=== PATIENT | female | born 1960 | race Asian ===

== ENCOUNTER → 2025-05-09 | Outpatient (CLI) | payer MEDICARE, MEDICAID, SELFPAY ==
--- NOTE | 2025-05-09 13:00 | XR_ITS ---
Examination: PA lateral chest 2 views TECHNIQUE: Upright PA lateral chest 2 views Date and time: May 09, 2025, 1357 hours INDICATIONS: Chest pain beginning one year ago. FINDINGS: Normal heart size. Lungs are clear. The osseous structures are intact IMPRESSION: No active disease
== END | disposition home or self-care (01) ==
PROVIDERS: PCP Nurse Practitioner Family; Referring Provider Internal Medicine; Visit Provider Internal Medicine
DX: R07.89 Other chest pain (principal)
CPT/HCPCS: 71046

== ENCOUNTER → 2025-05-12 | Outpatient (CLI) | payer MEDICARE, MEDICAID, SELFPAY ==
[2025-05-12 11:56] LABS: Basophils # (Auto) 0.0 Thou/mm3 (0.0-0.2); Basophils % (Auto) 1 % (0-2.5); Eosinophils # (Auto) 0.4 Thou/mm3 (0.0-0.5); Eosinophils % (Auto) 7 % (0-10); Hematocrit 37.8 % (36.0-46.0); Hemoglobin 11.8 g/dL (12.0-16.0); Immature Granulocytes Auto 0.02 Thou/mm3 (0.00-0.00); Lymphocytes # (Auto) 2.4 Thou/mm3 (1.0-4.8); Lymphocytes % (Auto) 43 % (10-50); Mean Corpuscular HGB Conc 31.2 g/dl (31.0-37.0); Mean Corpuscular Hemoglobin 29.9 pg (25.0-35.0); Mean Corpuscular Volume 96 fL (80-100); Monocytes # (Auto) 0.6 Thou/mm3 (0.0-0.8); Monocytes % (Auto) 11 % (0-12); Neutrophils # (Auto) 2.2 Thou/mm3 (1.8-7.7); Neutrophils % (Auto) 39 % (37-80); Nucleated Red Blood Cell # 0.00 Thou/mm3 (0.00-0.00); Nucleated Red Blood Cell % 0 /100 WBC (0); Platelet Count 234 Thou/mm3 (140-440); RDW Standard Deviation 46.2 fL (36.4-46.3); Red Blood Count 3.95 Miln/mm3 (4.00-5.20); White Blood Count 5.7 Thou/mm3 (3.6-11.0)
[2025-05-12 12:06] LABS: INR 1.0 (0.9-1.3); Partial Thromboplastin Time 24.5 Seconds (22.0-36.0); Prothrombin Time 10.5 Seconds (9.0-12.2)
[2025-05-12 12:23] LABS: Anion Gap 11 (7-16); BUN/Creatinine Ratio 15 Ratio (12-20); Blood Urea Nitrogen 15 mg/dL (9-23); Calcium 9.6 mg/dL (8.3-10.6); Carbon Dioxide 28.0 mMol/L (20.0-31.0); Chloride 108 mMol/L (98-107); Creatinine (Component) 1.0 mg/dL (0.6-1.3); Glucose 88 mg/dL (74-106); Osmolality,Calculated 292 (275-295); Potassium 4.9 mMol/L (3.4-5.1); Sodium 147 mMol/L (136-145); eGFR > 60 See Note
== END | disposition home or self-care (01) ==
LOC: COPL 10:49
PROVIDERS: PCP Nurse Practitioner Family; Referring Provider Internal Medicine; Visit Provider Internal Medicine
DX: I25.10 Atherosclerotic heart disease of native coronary artery without angina pectoris (principal); I48.91 Unspecified atrial fibrillation
CPT/HCPCS: 36415; 80048; 85025; 85610; 85730

== ENCOUNTER 2025-07-16 15:35 | Inpatient (IN) | payer MEDICARE, MEDICAID, SELFPAY ==
[2025-07-16] VITALS (11 sets, daily range): BP systolic 111–140; BP diastolic 68–85; PULSE 57–127; RESP 15–24; TEMP 37–39.7; O2SAT 92–97; BMI 21.9
--- NOTE | 2025-07-16 15:50 | EKG_ITS ---
[facility] Test Date: 2025-07-16 Pat Name: TATYANA CARPIO Department: Room: - Gender: Female Secondary English Teacher: : 1960 Requested By: Meagan Novak Order Number: [id number] Reading MD: Meagan Novak Measurements Intervals [place] Rate: 103 P: 64 AR: 120 QRS: 11 QRSD: 98 T: 42 QT: 310 QTc: 407 Interpretive Statements SINUS TACHYCARDIA WITH OCCASIONAL VENTRICULAR PREMATURE COMPLEXES INCOMPLETE RIGHT BUNDLE BRANCH BLOCK [90+ ms QRS DURATION, TERMINAL R IN V1/V2, 40+ ms S IN I/aVL/V4/V5/V6] ABNORMAL RHYTHM ECG Compared to ECG 08/21/2022 15:21:46 Ventricular premature complex(es) now present Sinus rhythm no longer present /store/S0/[id number]/ecg/[id number].pdf
--- NOTE | 2025-07-16 15:51 | XR_ITS ---
EXAMINATION: AP chest single view TECHNIQUE: AP portable upright chest single view Date and time: July 16, 2025, 1611 hours, comparison 05/09/2025 INDICATIONS: Sepsis alert today with shortness of breath. FINDINGS: Minor subsegmental atelectasis left base No lobar pneumonia. Normal heart size. Moderate osteopenia IMPRESSION: No pneumonia identified
--- NOTE | 2025-07-16 15:53 | PD.EDWEAK ---
ED Weakness RME/HPI General Chief complaint: Syncope / Near Syncope Stated complaint: NAUSEA/VOMITING WEAKNESS Time Seen by Provider: 07/16/25 15:49 Arrival date/time: 07/16/25 15:35 RME / HPI RME / HPI Narrative: 65 year old female with history of hypertension, diabetes, hyperlipidemia presents to the ED BIBA from home for evaluation of malaise and right-sided weakness beginning 3 days ago. Patient additionally complains of headache, chest pain, nausea, and vomiting. Denies fevers, chills, sore throat, shortness of breath, cough, diarrhea, or urinary symptoms. No blood in urine or stool. Patient mentioned she has had recent sick contacts, granddaughter sick with URI symptoms. Related Data Home Medications ?Medication ?Instructions ?Recorded ?Confirmed AMLODIPINE/ATORVASTATIN 1 ea PO DAILY ##0 12/21/12 (AMLODIPINE-ATORVAST 5-20 MG) lovastatin 20 mg tablet 20 mg PO DAILY ##0 12/21/12 naproxen 500 mg tablet 500 mg PO BID ##0 12/21/12 sumatriptan succinate 25 mg tablet 25 mg PO [id number] ##0 12/21/12 (Imitrex) Amitriptyline Hcl 25 mg PO QDAY ##30 07/08/16 Cyclobenzaprine Hcl 5 mg PO TID ##90 07/08/16 Hydrocodone/Acetaminophen * (NORCO 1 tab PO Q4H PRN PAIN #0 tabs 07/08/16 5/325 *) Metformin Hcl 500 mg PO BID ##60 07/08/16 gabapentin 300 mg capsule 300 mg PO QDAY ##30 07/08/16 gemfibrozil 600 mg tablet 600 mg PO BID ##60 07/08/16 triamcinolone acetonide 0.1 % 1 appln TP BID ##30 07/08/16 topical cream Previous Rx's ?Medication ?Instructions ?Recorded ibuprofen 800 mg tablet 800 mg PO TID PRN pain #60 tabs 11/26/20 albuterol sulfate 90 mcg/actuation 2 inh inhalation Q4H PRN shortness 08/21/22 aerosol inhaler of breath or wheezing #8.5 grams azithromycin 250 mg tablet See Rx Instructions PO .COMPLEX #6 08/21/22 (Zithromax Z-Jeff) tabs promethazine-DM 6.25 mg-15 mg/5 mL 5 ml PO Q4H PRN cough #118 mL 08/21/22 oral syrup Allergies Allergy/AdvReac Type Severity Reaction Status Date / Time No Known Allergies Allergy Verified 05/19/21 11:42 Review of Systems Review of Systems Systems Reviewed: All systems reviewed, normal except as documented Past Medical History Past Medical History CARDIAC: Positive Cardiac Disorders (LEAKY HEART VALVE,), Hypercholesterolemia and Hypertension MUSCULOSKELETAL: Positive Arthritis ENDOCRINE: Positive Diabetes Mellitus Type 2 Surgical History SURGICAL: Positive Vascular Surgery (TO LEG UNDURE LEFT OR RIGHT) and of Shoulder Sx (RIGHT SHOULDER) Social History SMOKING STATUS: Never smoker ED Exam Narrative Physical exam: Constitutional: Awake, alert, nontoxic, no acute distress HEENT: Normocephalic, atraumatic, extraocular movements intact. Neck: Supple CV: Regular rate and rhythm, no murmurs/rubs/gallops Lungs: Clear to auscultation BL, no respiratory distress. Abd: Soft, NT, ND, no HSM noted to palpation Extremities: No deformities, no edema noted, the right wrist acutely hot to touch with mild swelling, the right elbow also hot to touch though not as hot as the wrist, tenderness with movement of the right wrist and right elbow, unable to fully extend the right elbow. Pain to the right ankle, none to the knees bilaterally, no swelling. Neuro: AAOx3, CN 2-12 GIBL, no acute neuro deficit noted. Skin: Warm, dry, intact Course Course Course Narrative: 1755h: Patient with symptoms of fever ongoing the last few days as well as right-sided weakness last few days with right-sided headache recently. Her CRP is elevated as is her procalcitonin though white blood cell count is normal. Blood cultures have been ordered and sent. Empiric IV antibiotics ordered. Having pain to her right wrist and right elbow. Swelling to right wrist concerning for arthritic process. Discussed with hospitalist team for admission for further evaluation and management. I spoke with hospitalist team C for admission. Accepted. Quality Measures Current suspected stage: sepsis Possible source: unknown Blood cultures ordered: completed in ED Antibiotic ordered: Yes Pertinent labs: 07/16/25 15:45 Lactic Acid 1.5 mMol/L (0.4-2.0) Procalcitonin 0.80 H ng/ml (0.0-0.49) sepsis Orders Category Date Time Status Bedside COVID-19 Antigen Test NOW Care 07/16/25 16:03 Active Medical Insurance [employer] STAT Care 07/16/25 15:50 Active Continuous Pulse Oximetry STAT Care 07/16/25 15:50 Completed EKG (ED ONLY) *Do not use* NOW Care 07/16/25 15:50 Completed In and Out Catheter X1 Care 07/16/25 16:05 Completed In and Out Catheter X1PRN Care 07/16/25 15:50 Completed Insert IV NOW Care 07/16/25 15:50 Active NPO STAT Care 07/16/25 15:50 Active Strict Intake and Output Routine Care 07/16/25 15:[address] head/brain wo con Stat Exams 07/16/25 16:33 Completed EKG (ED Only) Stat Exams 07/16/25 15:50 Draft XR chest 1V SEPSIS PROTOCOL Stat Exams 07/16/25 15:51 Completed XR wrist RT 2V Stat Exams 07/16/25 17:55 Ordered B-Type Natriuretic Peptide Stat Lab 07/16/25 15:45 Completed Blood Culture (Lab) Stat Lab 07/16/25 15:40 Received C-Reactive Protein Stat Lab 07/16/25 15:45 Completed CBC Stat Lab 07/16/25 15:45 Completed Comprehensive Metabolic Panel Stat Lab 07/16/25 15:45 Completed FLU A&B [Influenza A & B Rapid Panel] Stat Lab 07/16/25 16:00 Completed Lactate (Lactic Acid) Stat Lab 07/16/25 15:45 Completed Lipase Stat Lab 07/16/25 15:45 Completed Magnesium Stat Lab 07/16/25 15:45 Completed Phosphorous Stat Lab 07/16/25 15:45 Completed Procalcitonin Stat Lab 07/16/25 15:45 Completed Prothrombin Time with INR Stat Lab 07/16/25 15:45 Completed Troponin I Stat Lab 07/16/25 15:45 Completed Urinalysis, C/S if Indicated Stat Lab 07/16/25 16:00 Completed Ringers Lactated 1000 ml [Lactated Ringers] 1,000 ml Med 07/16/25 17:49 Active IV 999 mls/hr Ringers Lactated 1000 ml [Lactated Ringers] 1,000 ml Med 07/16/25 17:49 Active IV 999 mls/hr cefTRIAXone [Rocephin] 2 gm Med 07/16/25 17:57 Active SODIUM CHLORIDE 0.9% (Popper) [Ns 0.9% (P)] 50 ml IV X1 Vital Signs Vital signs: Vital Signs Temperature 103.0 F H 07/16/25 15:45 Pulse Rate 120 H 07/16/25 15:45 Respiratory Rate 24 H 07/16/25 15:45 Blood Pressure 131/76 H 07/16/25 15:45 Pulse Oximetry (%) 95 07/16/25 15:45 Oxygen Delivery Method Room Air 07/16/25 15:45 Pulse ox is 95% on room air which is adequate. Weakness MDM Narrative MDM Narrative:: Carola Younger am scribing for and in the presence of Dr. Hurley. Patient data [place] [facility] [place] Clinical information provided by:: patient Social determinants that could affect healthcare access:: none Patient has the following chronic illnesses:: Right shoulder surgery How is presenting disease/condition affected by chronic disease/condition?: uneffected by Evaluation data The following diagnostics were reviewed and interpreted by me:: lab results, radiology exam(s) and EKG tracing(s) (EKG @ 16:05h, interpreted by me, sinus tachycardia, rate 103, incomplete right bundle branch block, no STEMI. ) Lab and/or radiology exams considered but not ordered:: None Interpretation Summary: Ordering Physician: Meagan Hurley MD Date of Service: 07/16/25 Procedure(s): XR chest 1V SEPSIS PROTOCOL Accession Number(s): [id number] cc: Nolan Ornelas MD; Meagan Hurley MD; Danyelle Heredia NP~ EXAMINATION: AP chest single view TECHNIQUE: AP portable upright chest single view Date and time: July 16, 2025, 1611 hours, comparison 05/09/2025 INDICATIONS: Sepsis alert today with shortness of breath. FINDINGS: Minor subsegmental atelectasis left base No lobar pneumonia. Normal heart size. Moderate osteopenia IMPRESSION: No pneumonia identified Dictated By: Nolan Ornelas MD Signed By: <Electronically signed by Nolan Ornelas MD in OV> 07/16/25 1647 Ordering Physician: Meagan Hurley MD Date of Service: 07/16/25 Procedure(s): CT head/brain wo con Accession Number(s): [id number] cc: Nolan Ornelas MD; Meagan Hurley MD; Danyelle Heredia NP~ Examination: CT brain head without contrast. 2-D sagittal coronal reconstructions Date and time of exam: July 16, 2025, 1721 hours, comparison December 11, 2020 INDICATIONS: Onset right-sided body weakness beginning 3 days ago CTDI: vol (mGy): 46.7 DLP: (mGycm): 834 Technique: Multiple CT axial sections of the brain have been obtained, 5 mm slice thickness. Contrast has not been administered. 2-D sagittal, coronal reconstructions have been obtained Low dose protocols were performed. One or more of the following dose reduction techniques were used; automated exposure control, adjustment of the mA and/or KV according to patient size, use of iterative reconstruction technique. Findings: No significant ventricular enlargement. Intra-axial or extra-axial hemorrhage density is not seen. No mass effect or midline shift Basal cisterns are not remarkable. Fourth ventricle is midline. Cranial vault intact. Impression: Negative for acute hemorrhage, mass effect or midline shift As clinically warranted, brain MRI follow-up would best assess for acute ischemic change Dictated By: Nolan Ornelas MD Signed By: <Electronically signed by Nolan Ornelas MD in OV> 07/16/25 9822 Medications / Prescriptions Medications or Prescriptions considered but not ordered:: None Medication administrations:: Medication Administration History Lactated Ringer's (Lactated Ringers) 1,000 mls @ 999 mls/hr IV .Q1H1M ONE Stop: 07/16/25 18:49 Lactated Ringer's (Lactated Ringers) 1,000 mls @ 999 mls/hr IV .Q1H1M ONE Stop: 07/16/25 18:49 Ceftriaxone Sodium 2 gm/ (Sodium Chloride) 50 mls @ 100 mls/hr IV X1 ONE Stop: 07/16/25 18:26 See above Consultations Consultation(s) initiated? (list below): Yes Consultation #1 (Physician, Specialty, Details): See above Diagnosis Weakness Differential Diagnosis: acute myocardial infarction, anemia, hypothyroidism, sepsis and dehydration Most likely diagnosis given after review of the tests above:: Acute febrile illness Acute right sided weakness right wist arthritis Admission Indicated Admission indicated?: indicated Admission Request Was there a request for admission?: Yes Admission Attestation Admission request attestation: Discussed case with [] from Hospitalist service regarding admission. Discussed patients ED course, exam findings, labs, and radiology results. The Hospitalist [agrees,declines] to accept the patient for admission. Disposition Plan Disposition Plan: Admit Discharge Plan Plan Patient Disposition: Admit Acute Care w/in Hospital Patient condition on transfer: Stable Prescriptions/Referrals Prescriptions/Med Rec: No Action AMLODIPINE/ATORVASTATIN (AMLODIPINE-ATORVAST 5-20 MG) 1 EACH tablet 1 ea PO DAILY Qty: 0 sumatriptan succinate [Imitrex] 25 MG tablet 25 mg PO [id number] Qty: 0 lovastatin 20 MG tablet 20 mg PO DAILY Qty: 0 naproxen 500 MG tablet 500 mg PO BID Qty: 0 gemfibrozil 600 MG tablet 600 mg PO BID Qty: 60 Amitriptyline Hcl 25 MG tablet 25 mg PO QDAY Qty: 30 triamcinolone acetonide 15 GM cream 1 appln TP BID Qty: 30 gabapentin 300 MG capsule 300 mg PO QDAY Qty: 30 Cyclobenzaprine Hcl 5 MG tablet 5 mg PO TID Qty: 90 Hydrocodone/Acetaminophen * (NORCO 5/325 *) 1 TAB tablet 1 tab PO Q4H PRN (Reason: PAIN) Qty: 0 Metformin Hcl 500 MG tablet 500 mg PO BID Qty: 60 ibuprofen 800 mg tablet 800 mg PO TID PRN (Reason: pain) Qty: 60 0RF albuterol sulfate 90 mcg/actuation HFA aerosol inhaler 2 inh inhalation Q4H PRN (Reason: shortness of breath or wheezing) Qty: 8.5 0RF azithromycin [Zithromax Z-Jeff] 250 mg tablet See Rx Instructions PO .COMPLEX Qty: 6 0RF Rx Instructions: For 250 mg dose pack: take 500 mg today (day 1), then 250 mg for 4 days (days 2-5) promethazine-DM 6.25-15 mg/5 mL syrup 5 ml PO Q4H PRN (Reason: cough) Qty: 118 0RF Referrals: Danyelle Heredia, [employer] [employer] [employer] [Primary Care Provider] - In 1 week Problem List Clinical Impression: Acute febrile illness, Acute right-sided weakness, Arthritis of right wrist Patient/Caregiver Discharge Instructions Print Language: Belgian Stand Alone Forms: Ju[facility] Award Info., Patient Portal Info Letter
[2025-07-16 16:02] LABS: Lactate (Lactic Acid) 1.5 mMol/L (0.4-2.0)
[2025-07-16 16:04] LABS: Basophils # (Auto) 0.0 Thou/mm3 (0.0-0.2); Basophils % (Auto) 0 % (0-2.5); Eosinophils # (Auto) 0.0 Thou/mm3 (0.0-0.5); Eosinophils % (Auto) 0 % (0-10); Hematocrit 33.5 % (36.0-46.0); Hemoglobin 11.0 g/dL (12.0-16.0); Immature Granulocytes Auto 0.03 Thou/mm3 (0.00-0.00); Lymphocytes # (Auto) 1.7 Thou/mm3 (1.0-4.8); Lymphocytes % (Auto) 21 % (10-50); Mean Corpuscular HGB Conc 32.8 g/dl (31.0-37.0); Mean Corpuscular Hemoglobin 30.5 pg (25.0-35.0); Mean Corpuscular Volume 93 fL (80-100); Monocytes # (Auto) 1.3 Thou/mm3 (0.0-0.8); Monocytes % (Auto) 15 % (0-12); Neutrophils # (Auto) 5.4 Thou/mm3 (1.8-7.7); Neutrophils % (Auto) 64 % (37-80); Nucleated Red Blood Cell # 0.00 Thou/mm3 (0.00-0.00); Nucleated Red Blood Cell % 0 /100 WBC (0); Platelet Count 193 Thou/mm3 (140-440); RDW Standard Deviation 40.3 fL (36.4-46.3); Red Blood Count 3.61 Miln/mm3 (4.00-5.20); White Blood Count 8.4 Thou/mm3 (3.6-11.0)
[2025-07-16 16:28] LABS: Collection Type, Urine Clean Catch
--- NOTE | 2025-07-16 16:33 | XR_ITS ---
Examination: CT brain head without contrast. 2-D sagittal coronal reconstructions Date and time of exam: July 16, 2025, 1721 hours, comparison December 11, 2020 INDICATIONS: Onset right-sided body weakness beginning 3 days ago CTDI: vol (mGy): 46.7 DLP: (mGycm): 834 Technique: Multiple CT axial sections of the brain have been obtained, 5 mm slice thickness. Contrast has not been administered. 2-D sagittal, coronal reconstructions have been obtained Low dose protocols were performed. One or more of the following dose reduction techniques were used; automated exposure control, adjustment of the mA and/or KV according to patient size, use of iterative reconstruction technique. Findings: No significant ventricular enlargement. Intra-axial or extra-axial hemorrhage density is not seen. No mass effect or midline shift Basal cisterns are not remarkable. Fourth ventricle is midline. Cranial vault intact. Impression: Negative for acute hemorrhage, mass effect or midline shift As clinically warranted, brain MRI follow-up would best assess for acute ischemic change
[2025-07-16 16:45] LABS: Influenza A Ag Negative; Influenza B Ag Negative
[2025-07-16 16:49] LABS: B-Type Natriuretic Peptide < 20 pg/mL (0-100)
[2025-07-16 16:49] LABS: Bilirubin,Urine Negative (Negative); Blood,Urine 2+ (Negative); Clarity,Urine Clear (Clear/Hazy); Color,Urine Yellow (Lt Yel-Yel); Culture Indicated,Urine Not Indicated; Glucose, Urine Negative (Negative); Ketones,Urine Trace (Negative); Leukocyte Esterase,Urine Negative (Negative); Nitrite,Urine Negative (Negative); PH,Urine 6.0 (5.0-7.0); Protein,Urine 1+ (Neg - Trace); RBC,Urine 64 /hpf (0-3); Specific Gravity,Urine 1.025 (1.001-1.035); Squamous Epithelial Cell,Urine < 1 /hpf (0-5); Urobilinogen,Urine Negative mg/dL (0.0-1.0); WBC,Urine 4 /hpf (0-5)
[2025-07-16 17:15] LABS: Alanine Aminotransferase < 7 U/L (10-49); Albumin, Serum 4.4 gm/dL (3.4-4.8); Albumin/Globulin Ratio 1.5 (1.2-2.2); Alkaline Phosphatase 64 U/L (46-116); Anion Gap 8 (7-16); Aspartate Amino Transferase 34 U/L (0-34); BUN/Creatinine Ratio 11 Ratio (12-20); Bilirubin,Total 0.9 mg/dL (0.3-1.2); Blood Urea Nitrogen 13 mg/dL (9-23); Calcium 8.7 mg/dL (8.3-10.6); Calcium (Corrected) 8.7 mg/dL (8.5-10.1); Carbon Dioxide 28.8 mMol/L (20.0-31.0); Chloride 99 mMol/L (98-107); Creatinine (Component) 1.2 mg/dL (0.6-1.3); Globulin 2.9 gm/dL (2.3-3.5); Glucose 148 mg/dL (74-106); INR 1.1 (0.9-1.3); Lipase 38 U/L (12-53); Magnesium 1.9 mg/dL (1.6-2.6); Osmolality,Calculated 275 (275-295); Phosphorous 2.0 mg/dL (2.4-5.1); Potassium 3.3 mMol/L (3.4-5.1); Procalcitonin 0.80 ng/ml (0.0-0.49); Prothrombin Time 11.4 Seconds (9.0-12.2); Sodium 136 mMol/L (136-145); Total Protein 7.3 gm/dL (5.7-8.2); Troponin I < 0.002 ng/mL (0.0-0.045); eGFR 50 See Note
[2025-07-16 17:32] LABS: C-Reactive Protein 22.1 mg/dL (0.0-0.9)
--- NOTE | 2025-07-16 17:55 | XR_ITS ---
EXAMINATION: Right wrist 2 views TECHNIQUE: AP lateral right wrist 2 views INDICATIONS: Pain and swelling today no trauma. FINDINGS: No fracture or dislocation No foreign body No cortical bone destruction IMPRESSION: No fracture or cortical bone destruction
[2025-07-16] MEDS: cefTRIAXone 2 GM in SODIUM CHLORIDE 0.9% (Popper) 50 ML IV (18:14)
[2025-07-16] MEDS: RINGERS LACTATED 1000 ML 1,000 ML 999 ML IV ×2 (18:28)
--- NOTE | 2025-07-16 18:39 | XR_ITS ---
Examination: CT chest with intravenous contrast CT abdomen with intravenous contrast CT pelvis with intravenous contrast 2-D coronal and sagittal reconstructions Time of exam: July 16, 2025, 1926 hours, comparison April 10, 2024 INDICATIONS: Sepsis alert, onset of chest abdominal pain today CTDI: vol (mGy) : 6.62 DLP: (mGycm): 492 Technique: Multiple axial images of the chest, abdomen and pelvis with intravenous contrast, 3.0 mm slice thickness. Images obtained post intravenous injection Isovue 370 60 cc. 2-D sagittal and coronal reconstructions. Low dose protocols were performed. One or more of the following dose reduction techniques were used; automated exposure control, adjustment of the mA and/or KV according to patient size, use of iterative reconstruction technique. Findings: No thoracic aortic aneurysmal dilatation or dissection No pulmonary artery filling defects on this non CTA study Atelectasis versus mild pneumonia at both bases minimal pleural fluid bilaterally Intrahepatic biliary tract dilatation with small low-density lesions which may represent cysts, liver is irregular in contour Distended gallbladder Abnormal enlargement common bile duct 11 mm, no definite common bile duct stones No pancreatic mass or peripancreatic edema no dilated pancreatic duct Spleen is not enlarged No renal or ureteral calculi,. Mild dilatation of the renal collecting systems and proximal ureters, axial image 180 No ureteral calculi Aorta normal size No bowel obstruction Distended urinary bladder Atrophic uterus IMPRESSION: Atelectasis versus mild pneumonia at the lung bases, clinical correlation advised Distended gallbladder, intra and extrahepatic biliary tract dilatation, with common bile duct 11 mm, no definite common bile duct stones, differential would include ascending cholangitis, common bile duct stone and/or malignant stricture Recommend MRCP follow-up Mild dilatation of the renal collecting systems and proximal ureters bilaterally, consider urinary tract infection
--- NOTE | 2025-07-16 18:40 | ESHP_ITS ---
Addendum History & Physical Addendum Date of report being addended: 07/16/25 Narrative: Patient is a 65-year-old female with history of hypertension, hyperlipidemia, and diabetes, who presented with multiple complaints including generalized weakness, fevers, headaches, nausea, vomiting, and abdominal pain. She also reported that the weakness is mainly on her right side. She reported right wrist swelling. In the ED, she was febrile as high as 103.4. She was tachycardic as high as 1 20. Labs showed no leukocytosis. On exam, she does have right upper extremity swelling. She has weakness on the right side of her body. She has abdominal tenderness that is mainly periumbilical. CT head is negative for acute changes Pending CT of the abdomen/pelvis to look for source of sepsis Pending x-ray of the right wrist Will sign off to night team
[2025-07-16] MEDS: KETOROLAC INJ 30 MG/ML VIAL 15 MG IVP (19:05)
[2025-07-16] MEDS: MethylPREDNISolone SOD SUCC 62.5 MG/ML 2ML VIAL 125 MG IVP (19:17)
--- NOTE | 2025-07-16 23:49 | ESHP_ITS ---
<Statement entered by Albania Del Castillo MD - 07/17/25 03:28> Jadyn Madrigal is 65 yr female with PMH of chronic pain on tramadol, gabapentin, cyclobenzaprine coming with chief complaint of right side weakness that started 2 days ago. Patient speaks Indian. Leo was contacted over the phone who assisted with translation and more history. However, she also was unclear of preceding events. Patient had angiogram on May [address] Saunders. They are not aware of the results yet. Patient lives with the [facility]. Stated that after using the restroom, she had syncopal episode with LOC for 1-2 minutes. Patient does not take diabetic medication any longer. CT head was negative for acute hemorrhage or mass effect. UA not showing infection, CXr negative for any active disease. CT a/p showed distended gallbladder, intra and extrahepatic biliary tract dilatation, with common bile duct 11 mm, no definite common bile duct stones. On physical exam, strength in LE is 3/5, no pain, no abdominal tenderness. Vitals reflecting tachycardia 120, tachypnea 24, fever 103. WBCs 8.4, potassium 3.3, phosphorus 2.0, creatinine 1.2, elevated CRP 22, Pro-Alvin 0.8. Echo is pending. Met SIRS 3/4, no source of infection. Admit patient for workup syncope and fever of unknown origin. The patient's management plan was discussed with my attending physician Dr. Adam. Albania Del Castillo, PGY-2 Documentation for date of: 07/16/25 HPI History of Present Illness History of present illness: Patient is a 65-year-old female with history of hypertension, hyperlipidemia, and diabetes, who presented with multiple complaints including generalized weakness, fevers, headaches, nausea, vomiting, and abdominal pain. Admitted for fever of unknown origin. ED Course Summary Vitals: BP 131/76 HR 120 RR 24 T 103F O2 95% RA Labs: Hgb 11 coags wnl K 3.3 BUN 13 Cr 1.2 (baseline) glucose 148 P 2.0 CRP 22.1 Procal 0.8 Imaging: CT head is negative for acute changes. CTAP atelectasis vs pna, Distended gallbladder, intra and extrahepatic biliary tract dilatation, with common bile duct 11 mm, no definite common bile duct stones, differential would include ascending cholangitis, common bile duct stone and/or malignant stricture. Recommend MRCP follow-up. Mild dilatation of the renal collecting systems and proximal ureters bilaterally, consider urinary tract infection. R wrist Xray no fracture or cortical bone destruction Treatment: LR x2 Ceftriaxone 2g IV, Blood cx drawn While in the ED she had an allergic reaction to IV ceftriaxone with hives forming on her skin. Ceftriaxone was discontinued. Hospital core drill operator helper services were not able to accommodate the Indian language, the patient has decent comprehension and ability to speak American, but her granddaughter who is fluent in both was called at the patient's encouragement. Unfortunately neither the patient nor her granddaughter are proficient historians and the story remains somewhat unclear. Patient confirms history from ED: Three days of fevers, MANN, NV, abd pain, right sided weakness. Patient was in the bathroom where she felt dizzy and had an episode of loss of consciousness for an unknown period of time. She was found laying on the floor calling out for help slurring her words, and unable to effectively move the right side of the body. By now her weakness and slurring appeared to have resolved however her right sided sensory deficits still linger as she feels numb. Her granddaughter states that With regards to her fever, patient denies pain after eating, she denies history of seizures, and is unsure about any of her medical history. She denies having any issues urinating. On 05/14 she reports she had angiography for arterial blockage due to chest pain. Her control technician is Dr. Saunders. She has not done follow up yet. They state that her right sided weakness has been ongoing since this procedure, but that contradicts the other story of the weakness occurring since Monday (two days ago). She also has another surgery in her shoulder for muscular and neurovascular problems; however, neither the patient or the granddaughter can explain what the surgery was for, but it may be for thoracic outlet syndrome. Code: Full Insulin: None Medical Hx: HTN, HLD, DM (remote history in the past) Medications: Tramadol 50mg, Gabapentin 100mg x3 TID, Cyclobenzaprine 10mg QD Allergies: Ceftriaxone (hives) Surgical history: R shoulder surgery - unsure but seems like it is for thoracic outlet syndrome. 05/14 angiography for arterial blockage Living: With 2 granddaughters Work: Never worked Alcohol: Never Cigarettes/tobacco: Never Recreational drugs: Never Patient admitted for: fever of unknown origin All 12 systems reviewed and were negative except otherwise stated in HPI. Exam Vital Signs Temp Pulse Resp BP Pulse Ox O2 Del Method 98.6 F 57 L 16 111/68 94 L Room Air 07/16/25 21:28 07/16/25 23:00 07/16/25 23:00 07/16/25 23:00 07/16/25 21:28 07/16/25 21:28 Narrative Exam GENERAL APPEARANCE: AOx4. NAD, activity normal for age, well developed/ well nourished, no cyanosis, pallor, or diaphoresis. HEENT: Normocephalic atraumatic, no facial trauma, neck is supple. Lids/conjunctiva normal. Mucous membranes moist, nares normal, lips/teeth normal uvula midline without oral pharyngeal erythema, exudate or swelling TMs normal bilaterally. No lymphangitis/lymphedema. CARDIAC: Regular rate and rhythm, S1+S2 heard. No murmurs, rubs, or gallops noted RESPIRATORY: respiratory effort normal, speaks in full sentences, no tripod position, no accessory muscle use. Lungs clear to auscultation without rhonchi, wheezes, rales ABDOMINAL: NBS. Soft, ND/NT. No evidence of fluid wave. No pulsatile masses on exam, rebound tenderness, Zambrano sign or pain over Mcburney's point. H ypogastrium (bladder) is tense and NTTP. MUSCLES/EXTREMITIES: No abnormal range of motion, no swelling. DERM: Warm, pink and dry. No rashes, dermatoses, petechiae or lesions. NEUROLOGICAL: Speech is clear and appropriate. Normal level of consciousness. 5/5 strength in all extremities. Able to lift legs against external pressure. Registration Representative and pincer strength intact. Right sided sensory deficits (numbness) in right upper and lower extremities. Cranial nerves 1-12 were intact, no asymmetry, sensory or focal deficits noted of cranial nerves. PSYCH: Normal mood and affect. Judgement/competence is appropriate Renal: -CVA tenderness Results: Labs 07/17/25 04:34 07/17/25 04:34 Labs: Short CBC 07/16/25 Range/Units 15:45 WBC 8.4 (3.6-11.0) Thou/mm3 Hgb 11.0 L (12.0-16.0) g/dL Hct 33.5 L (36.0-46.0) % Plt Count 193 (140-440) Thou/mm3 BMP 07/16/25 15:45 Sodium 136 Potassium 3.3 L Chloride 99 Carbon Dioxide 28.8 BUN 13 Creatinine 1.2 Glucose 148 H Calcium 8.7 Cardiac Enzymes 07/16/25 Range/Units 15:45 Troponin I < 0.002 (0.0-0.045) ng/mL Liver Function 07/16/25 Range/Units 15:45 Total Bilirubin 0.9 (0.3-1.2) mg/dL AST 34 (0-34) U/L ALT < 7 L (10-49) U/L Alkaline Phosphatase 64 (46-116) U/L Albumin 4.4 (3.4-4.8) gm/dL Urine 07/16/25 Range/Units 16:00 Urine Color Yellow (Lt Yel-Yel) Urine Clarity Clear (Clear/Hazy) Urine pH 6.0 (5.0-7.0) Ur Specific [place] 1.025 (1.001-1.035) Urine Protein 1+ A (Neg - Trace) Urine Glucose (UA) Negative (Negative) Quality Measures Quality Measures sepsis Current suspected stage: ruled out Possible source: unknown Blood cultures ordered: completed in ED Antibiotic ordered: No Advance care planning discussed with:: patient and other Medications Home Medications and Allergies Home Medications ?Medication ?Instructions ?Recorded ?Confirmed ?Type gabapentin 300 mg capsule 300 mg PO QDAY ##30 07/08/16 07/17/25 History cyclobenzaprine 10 mg tablet 10 mg PO HS 07/17/2507/05 History tramadol 50 mg tablet 50 mg PO QID 07/17/25 History Allergies Allergy/AdvReac Type Severity Reaction Status Date / Time ceftriaxone (From Rocephin) Allergy Hives Verified 07/16/25 19:04 Visit Medications Acetaminophen (Acetaminophen 325 Mg Tablet) 650 mg PO Q6H PRN PRN Reason: Fever >100.4 or pain 1-3 Stop: 08/15/25 23:45 Hydrocodone Bitart/Acetaminophen (Hydrocodone/Apap 5/325 Tablet) 1 tab PO Q4HR PRN PRN Reason: PAIN SCALE 4-6 (Moderate Stop: 07/21/25 23:45 Docusate Sodium (Docusate Sod 100 Mg Capsule) 100 mg PO QDAY [facility]; Protocol Stop: 08/16/25 08:59 Famotidine (Famotidine Inj 10 Mg/Ml Vial 2 Ml) 20 mg IVP Q12HR [facility] Stop: 08/16/25 08:59 Heparin Sodium (Porcine) (Heparin Sod Inj 5000 Unit/Ml Vial) 5,000 unit SC Q12HR [facility] Stop: 07/31/25 08:59 Lactated Ringer's (Lactated Ringers) 1,000 mls @ 75 mls/hr IV .[id number] [facility] Stop: 08/15/25 23:44 Ondansetron HCl (Ondansetron Inj 2 Mg/Ml Inj 2 Ml) 4 mg IVP Q6H PRN; Protocol PRN Reason: NAUSEA OR VOMITING Stop: 08/15/25 23:45 Discontinued Medications Acetaminophen (Acetaminophen 325 Mg Tablet) 650 mg PO X1 ONE Stop: 07/16/25 18:58 Last Admin: 07/16/25 19:05 Dose: Not Given Lactated Ringer's (Lactated Ringers) 1,000 mls @ 999 mls/hr IV .Q1H1M ONE Stop: 07/16/25 18:49 Last Infusion: 07/16/25 20:15 Dose: Infused Lactated Ringer's (Lactated Ringers) 1,000 mls @ 999 mls/hr IV .Q1H1M ONE Stop: 07/16/25 18:49 Last Infusion: 07/16/25 20:15 Dose: Infused Ceftriaxone Sodium 2 gm/ (Sodium Chloride) 50 mls @ 100 mls/hr IV X1 ONE Stop: 07/16/25 18:26 Last Infusion: 07/16/25 18:54 Dose: Infused Ketorolac Tromethamine (Ketorolac Inj 30 Mg/Ml Vial) 15 mg IVP X1 ONE Stop: 07/16/25 18:58 Last Admin: 07/16/25 19:05 Dose: 15 mg Methylprednisolone Sodium Succinate (Methylprednisolone Sod Succ 62.5 Mg/Ml 2ml Vial) 125 mg IVP X1 ONE Stop: 07/16/25 19:11 Last Admin: 07/16/25 19:17 Dose: 125 mg Assessment & Plan Plan Patient is a 65-year-old female with history of hypertension, hyperlipidemia, and diabetes, who presented with multiple complaints including generalized weakness, fevers, headaches, nausea, vomiting, and abdominal pain. Admitted for fever of unknown origin. #Fever of unknown origin DDx: PNA, UTI, SLE?, Infection, cancer, autoimmune are top 3 causes of fever of unknown origin. Two to three days of fevers, MANN, NV, abd pain, right sided weakness. On admission temperature was 103F downtrended to 98.6F. Has no pain on physical exam, lungs were clear to auscultation and there was no CVA tenderness. Patient also denies any urinary issues. Concern for stones is minimal due to no T Bili elevation nor were stones seen on imaging. Minimal to no suspiscion of cholecystitis since no presenting altered mental status, no jaundice, abdomen is diffusely soft and nontender to palpation , Zambrano's sign negative. However there is a distended gallbladder, intra and extrahepatic biliary tract dilatation, with common bile duct 11 mm, no definite common bile duct stones. CTAP also showed concern for atelectasis vs pna. As well as mild dilatation of the renal collecting systems and proximal ureters bilaterally. Possible that a renal stone could have passed since isolated RBCs in urinalysis. Plan: -MRCP:___ -FUP ESR:___ -FUP blood cx:___ -FUP B12:___ -FUP Thiamine:___ -FUP CHIRAG:___ -FUP CK:___ -Acetominophen 650mg PO Q6H PRN Pain 1-3 -Narco 5 PO Q4HR PRN pain 4-7 -Zosyn 3.375g IV Q8HR for broad spectrum coverage #Syncope Patient had recent episode of one sided weakness, sensory deficits and slurring two - three days ago. Ongoing R sided numbness of upper and lower extremity. Currently outside the window for TNK. Imaging did not reveal any findings. No concern of stroke despite patient continuing to have right side numbness as head CT is negative while symptoms have been present for past 2-3 days. Plan: - ASCVD score:____ - Physical therapy referral: - Swallow referral: - TSH: - Lipid panel: - A1C:___ - ECHO:___ - Consider consulting cards, Thayapran is her control technician. #Incidental finding on CT A/P Intra/extra hepatic biliary duct dilatation Patient's symptomatic with no liver enzymes elevation Concern for malignancy Follow-up MRCP. #DM Patient not taking any medications. Plan: -ISS -Bedside glucose ACHS #HTN No medications currently #HLD No medications currently Plan: -FUP lipid panel Health Maintenance: Code status: Full (per granddaughter and patient) DVT prophylaxis: Heparin 5000 subq Q12hr GI prophylaxis: Famotidine Diet: NPO pending swallow eval Poon: None, but bladder scans ordered PRN Lines: PIV Supplemental O2: NC Disposition: Admitted to [facility] for fever of unknown origin Patient seen and reviewed with attending Dr. Adam. Note written by Jhonny Kelly MD PGY-1 Attending Provider Attestation/Addendum After examination of the patient and review of the clinical data I feel that this patient needs admission to the hospital for further treatment/evaluation. Plan of care discussed with patient and is in agreement. I Juan Adam MD, attest that I was physically present for lott portions of evaluation, and examined patient, labs and imagings and plan of care were discussed with IM residents team, and I agree with the findings and plans documented above.
[2025-07-17] VITALS (14 sets, daily range): BP systolic 120–150; BP diastolic 60–84; PULSE 51–95; RESP 14–99; TEMP 34.8–36.4; O2SAT 93–97; BMI 22.8
[2025-07-17] MEDS: RINGERS LACTATED 1000 ML 1,000 ML 75 ML IV ×2 (00:43→13:59)
[2025-07-17] MEDS: POT PHOS 15 mMol in NS 250 ML 15 MMOL/250 ML BAG 62.5 MMOL IV (01:26)
--- NOTE | 2025-07-17 02:33 | ECHO_ITS ---
Patient Info Name: Jadyn Madrigal Age: 65 years : 1960 Gender: Female Ht: 157 cm Wt: 54 kg BSA: 1.55 m2 BP: 129 / 74 mmHg Heart Rhythm: Sinus Rhythm Exam Date: 07/18/2025 1:57 PM Admit Date: 07/16/2025 Site: [facility] Patient Status: I Technical Quality: Fair Exam Type: CA echo doppler complete Route Supervisor: Amy Wagoner Ordering Physician: Jhonny Kelly Study Info Indications syncope - Primary Location: [id number] Left Ventricular Outflow Tract Name Value Normal LVOT 2D LVOT Diameter 1.8 cm LVOT Doppler LVOT Peak Velocity 92 cm/s LVOT Mean Gradient 2 mmHg LVOT VTI 24 cm LVOT VTI/AV VTI Ratio 0.8 LVOT Stroke Volume 60 ml Pulmonic Valve Name Value Normal PV Doppler PV Peak Velocity 86 cm/s PV Regurgitation Doppler HI Peak End Diastolic Velocity 167 cm/s Mitral Valve Name Value Normal MV Doppler MV Decel Jerome 427 cm/s2 MV PHT 50 ms MV Area (PHT) 4.4 cm2 4.0-5.0 MV Diastolic Function MV E Peak Velocity 74 cm/s MV A Peak Velocity 77 cm/s MV E/A 1.0 MV Annular TDI MV Septal e' Velocity 8.6 cm/s MV E/e' (Septal) 8.6 MV Lateral e' Velocity 12.0 cm/s MV E/e' (Lateral) 6.1 MV e' Average 10.30 cm/s MV E/e' (Average) 7.4 Tricuspid Valve Name Value Normal TV Regurgitation Doppler TR Peak Velocity 223 cm/s Estimated PAP/RSVP RA Pressure 15 mmHg <=5 PA Systolic Pressure 35 mmHg <36 RV Systolic Pressure 35 mmHg <36 TV Annular TDI TV Lateral Ann-Marie s' Velocity 14.1 cm/s >=9.5 Aorta Name Value Normal Ascending Aorta Ao Root Diameter (MM) 1.9 cm Ao Root Diam Index (MM) 1.2 cm/m2 Aortic Valve Name Value Normal AV 2D/MM AV Cusp Sep (MM) 1.7 cm AV Doppler AV Peak Velocity 133 cm/s AV Mean Gradient 3 mmHg AV VTI 28 cm AV Area (Cont Eq VTI) 2.1 cm2 >=3.0 AV Area (Cont Eq Elmo) 1.8 cm2 AV DI (Elmo) 0.69 AV Regurgitation 2D LVOT Area 2.5 cm2 Ventricles Name Value Normal LV Dimensions 2D/MM IVS Diastolic Thickness (2D) 0.8 cm 0.6-0.9 LVID Diastole (2D) 4.1 cm 3.8-5.2 LVIW Diastolic Thickness (2D) 0.8 cm 0.6-0.9 LVID Systole (2D) 2.7 cm 2.2-3.5 LVOT Diameter 1.8 cm LV Mass (2D Cubed) 97.34 g 67.00-162.00 LV Mass Index (2D Cubed) 63 g/m2 43-95 Relative Wall Thickness (2D) 0.39 <=0.42 IVS/LVIW Diastolic Thickness (2D) 1.00 0.00-1.50 LV Fractional Shortening/Ejection Fraction 2D/MM LV Fractional Shortening (2D) 34 % 27-45 LV EF (2D Teichholz) 64 % LV Diastolic Volume (4C MOD) 64 ml LV EF (4C MOD) 60 % LV Diastolic Volume (2C MOD) 70 ml LV EF (2C MOD) 63 % LV Diastolic Volume (BP MOD) 68 ml 46-106 LV Diastolic Volume Index (BP MOD) 44 ml/m2 29-61 LV Systolic Volume (BP MOD) 26 ml 14-42 LV Systolic Volume Index (BP MOD) 17 ml/m2 8-24 LV EF (BP MOD) 62 % 54-74 LV Diastolic Length (4C) 6.8 cm LV Systolic Length (4C) 5.5 cm LV Stroke Volume (4C MOD) 38 ml RV Dimensions 2D/MM TV Lateral Ann-Marie s' Velocity 14.1 cm/s >=9.5 Atria Name Value Normal LA Dimensions LA Dimension (MM) 3.6 cm 2.7-3.8 LA Volume (4C A-L) 29 ml LA Volume (BP A-L) 34 ml Left Ventricle Left ventricular chamber dimension is normal. Left ventricular systolic function is normal with an ejection fraction by Biplane Method of Discs of 62 %. There is normal geometry noted in the left ventricle. Left ventricular segmental wall motion is normal. There is normal diastolic function in the left ventricle. Right Ventricle Right ventricular chamber dimension is normal. Right ventricular systolic function is normal. Left Atrium Left atrial chamber dimension is normal. Right Atrium Right atrial chamber dimension is normal. Aortic Valve The aortic valve is trileaflet. There is no aortic valve sclerosis. There is no aortic valve stenosis with a peak velocity of 133 cm/s, mean gradient of 3 mmHg, and aortic valve area of 2.1 cm2. There is no aortic valve regurgitation. Pulmonic Valve The pulmonic valve is normal. There is no pulmonic valve stenosis. There is no pulmonic regurgitation. Mitral Valve The mitral valve has normal leaflets. There is no mitral valve stenosis. There is trace mitral valve regurgitation. Tricuspid Valve The tricuspid valve leaflets are normal. There is no tricuspid valve stenosis. There is mild tricuspid valve regurgitation. No pulmonary hypertension, estimated pulmonary arterial systolic pressure is 35 mmHg and systemic blood pressure of 129 mmHg in systole. Pericardium/Pleural The pericardium appears normal. There is no pericardial effusion. No pleural effusion visualized. Inferior Vena Cava Dilated inferior vena cava with >50% collapse upon inspiration consistent with normal right atrial pressure, 15 mmHg. Aorta The aortic measurements are indexed to age and body surface area. Summary 1. Left ventricle size is normal and systolic function is normal. Estimated ejection fraction is 55-60%. There is normal diastolic function. 2. Right ventricle chamber size is normal and systolic function is normal. Estimated RVSP is 35 mmHg. Mildly elevated. 3. There is trace mitral valve regurgitation. 4. There is mild tricuspid valve regurgitation. 5. Dilated IVC with estimated RA pressure 15 mmHg. Report Signatures Finalized by Dileep Mayberry on 07/18/2025 06:29 PM
--- NOTE | 2025-07-17 04:53 | PD.RESEVENT ---
Documentation for date of: 07/17/25 Event Note Event Note: Rapid response at 4:10AM due to hypothermia. Patient was laying comfortably in bed with warm blankets, no shaking, no distress. Temp 94.7, BP 135/75, HR 58, 96% o2 on RA, BS 153. Ordered TSH with morning labs and started patient on Zosyn 3.375g TID. Currently no source of infection identified. At end of rapid, HR improved 75-80. Most recent temp recorded at 97.4. Blood cultures from admission are pending.
--- NOTE | 2025-07-17 05:33 | PC.NURSE ---
Completed partial med reconcilation as patient arrived to unit with some of her medication. Per patient, her grand daughter knows what medication she takes.
[2025-07-17 06:05] LABS: Basophils # (Auto) 0.0 Thou/mm3 (0.0-0.2); Basophils % (Auto) 0 % (0-2.5); Eosinophils # (Auto) 0.0 Thou/mm3 (0.0-0.5); Eosinophils % (Auto) 0 % (0-10); Hematocrit 37.2 % (36.0-46.0); Hemoglobin 12.1 g/dL (12.0-16.0); Immature Granulocytes Auto 0.02 Thou/mm3 (0.00-0.00); Lymphocytes # (Auto) 1.1 Thou/mm3 (1.0-4.8); Lymphocytes % (Auto) 14 % (10-50); Mean Corpuscular HGB Conc 32.5 g/dl (31.0-37.0); Mean Corpuscular Hemoglobin 30.6 pg (25.0-35.0); Mean Corpuscular Volume 94 fL (80-100); Monocytes # (Auto) 0.3 Thou/mm3 (0.0-0.8); Monocytes % (Auto) 4 % (0-12); Neutrophils # (Auto) 6.5 Thou/mm3 (1.8-7.7); Neutrophils % (Auto) 83 % (37-80); Nucleated Red Blood Cell # 0.00 Thou/mm3 (0.00-0.00); Nucleated Red Blood Cell % 0 /100 WBC (0); Platelet Count 218 Thou/mm3 (140-440); RDW Standard Deviation 41.1 fL (36.4-46.3); Red Blood Count 3.95 Miln/mm3 (4.00-5.20); White Blood Count 7.8 Thou/mm3 (3.6-11.0)
[2025-07-17 06:25] LABS: Sed Rate (ESR) 102 mm/hr (0-30)
[2025-07-17 06:30] LABS: Vitamin B12 937 pg/mL (211-911)
[2025-07-17] MEDS: PIPER/TAZO 3.375 GM PREMIX 3.375 GM/50 ML BAG IV ×3 (06:31→22:19)
[2025-07-17 06:38] LABS: Lactate (Lactic Acid) 1.3 mMol/L (0.4-2.0)
[2025-07-17 06:56] LABS: Alanine Aminotransferase < 7 U/L (10-49); Albumin, Serum 4.4 gm/dL (3.4-4.8); Albumin/Globulin Ratio 1.4 (1.2-2.2); Alkaline Phosphatase 68 U/L (46-116); Anion Gap 12 (7-16); Aspartate Amino Transferase 32 U/L (0-34); BUN/Creatinine Ratio 15 Ratio (12-20); Bilirubin,Total 0.5 mg/dL (0.3-1.2); Blood Urea Nitrogen 12 mg/dL (9-23); Calcium 9.0 mg/dL (8.3-10.6); Calcium (Corrected) 9.0 mg/dL (8.5-10.1); Carbon Dioxide 28.4 mMol/L (20.0-31.0); Cardiac Risk Estimate 2.5 RATIO (3.7-5.6); Chloride 103 mMol/L (98-107); Cholesterol 148 mg/dL (132-200); Creatine Kinase 145 U/L (34-171); Creatinine (Component) 0.8 mg/dL (0.6-1.3); Estimated Creatinine Clearance 54.7 mL/min (>60); Free T4 (Free Thyroxine) 1.21 ng/dL (0.89-1.76); Globulin 3.1 gm/dL (2.3-3.5); Glucose 167 mg/dL (74-106); HDL Cholesterol 60 mg/dL (40-60); LDL Cholesterol,Calculated 76 mg/dL (0-130); Magnesium 2.0 mg/dL (1.6-2.6); Osmolality,Calculated 288 (275-295); Phosphorous 4.6 mg/dL (2.4-5.1); Potassium 4.6 mMol/L (3.4-5.1); Sodium 143 mMol/L (136-145); Thyroid Stimulating Hormone 0.22 uIU/mL (0.55-4.78); Total Protein 7.5 gm/dL (5.7-8.2); Triglycerides 62 mg/dL (30-150); eGFR > 60 See Note
[2025-07-17 07:15] LABS: Glucose Estimated Average 108 mg/dL (80-131); Hemoglobin A1C 5.4 % Hgb (4.8-6.0)
[2025-07-17] MEDS: FAMOTIDINE INJ 10 MG/ML VIAL 2 ML 20 MG IVP ×2 (08:42→20:19)
--- NOTE | 2025-07-17 10:36 | ESPR_ITS ---
<Statement entered by Theodore Santillan MD - 07/18/25 15:15> Patient seen and examined at bedside. I discussed and supervised with the internet technology manager physician who took care of this patient. I personally saw and examined the patient. I agree with most of the assessment and plan. Plan of care discussed with attending Dr. Karen Santillan MD PGY-2 Documentation for date of: 07/17/25 Subjective Subjective Interval history: Currently exploring the cause of her fever. She had an episode of lOC with right sided weakness. CXR was negative for PNA. CT abd/pelvis showed dilated CBD without stones. Distended gallbladder, but LFTs were normal. UA showed hematuria, but no signs of UTI. Patient did say she started to feel right side pain after receiving receiving angiography on 05/[address] Saunders. A utoimmune etiology is possible with Elevation of ESR 102 and CRP 22.1. CHIRAG is pending. Patient also noted many of her family members were diagnosed with bone cancer. So Cancer could also be on differential diagnosis. Patient has right sided pain in arms and legs. Also sensation of abnormal bone growing in her right 2-3rd rib. Will continue to monitor. Labs reviewed and patient examined at the bedside. Denies chest pain, palpation, SOB, abdominal pain, N/V, fevers or chills. Exam Vital Signs Temp Pulse Resp BP Pulse Ox O2 Del Method 97.3 F 95 16 135/75 H 95 Room Air 07/17/25 07:25 07/17/25 07:07/17/25 07:25 07/17/25 07:25 07/17/25 07:07/17/25 07:25 Narrative Exam General: No acute distress, well nourished, AAO x3 Eye: PERRL, EOMI, normal conjunctiva, no scleral icterus HENT: Normocephalic, atraumatic, hearing intact to conversation at normal volume, moist oral mucosa Neck: Supple, non-tender, no JVD, no lymphadenopathy Lungs: Non-labored respirations, symmetric chest rise, Clear to auscultate bilaterally, No wheezing, rhonchi, crackles Heart: Peripheral pulses intact bilaterally, Regular Rate and Rhythm. Abdomen: Soft, non-tender, non-distended, no palpable masses Musculoskeletal: Normal range of motion and strength, No cyanosis or edema, No visible joint swelling, Right sided numbness and pain on palpation. Skin: Skin is warm, dry, no rashes or lesions. Psychiatric: Cooperative, appropriate mood and affect, Awake and alert, not agitated Neuro: Cranial nerves II-XII grossly intact. Sensations intact to light touch. Objective Labs 07/19/25 05:46 07/19/25 05:46 Labs: Laboratory Results - last 24 hr 07/16/25 07/16/25 07/17/25 15:45 16:00 04:34 WBC 8.4 7.8 RBC 3.61 L 3.95 L Hgb 11.0 L 12.1 Hct 33.5 L 37.2 MCV 93 94 MCH 30.5 30.6 MCHC 32.8 32.5 RDW Std Deviation 40.3 41.1 Plt Count 193 218 Neut % (Auto) 64 83 H Lymph % (Auto) 21 14 [place] % (Auto) 15 H 4 Eos % (Auto) 0 0 Baso % (Auto) 0 0 Neut # (Auto) 5.4 6.5 Lymph # (Auto) 1.7 1.1 [place] # (Auto) 1.3 H 0.3 Eos # (Auto) 0.0 0.0 Baso # (Auto) 0.0 0.0 Immature Gran # (Auto) 0.03 H 0.02 H Absolute Nucleated RBC 0.00 0.00 Immature Gran % 0 0 Nucleated RBC % 0 0 ESR 102 H PT 11.4 INR 1.1 Sodium 136 143 Potassium 3.3 L 4.6 D Chloride 99 103 Carbon Dioxide 28.8 28.4 Anion Gap 8 12 BUN 13 12 Creatinine 1.2 0.8 Estim Creat Clear Calc Not Performed. 54.7 L eGFR 50 L > 60 BUN/Creatinine Ratio 11 L 15 Glucose [address] Glu mg/dL 108 Hemoglobin A1c 5.4 Calculated Osmolality 275 288 Lactic Acid 1.5 Calcium 8.7 9.0 Corrected Calcium 8.7 9.0 Phosphorus 2.0 L 4.6 Magnesium 1.9 2.0 Total Bilirubin 0.9 0.5 AST 34 32 ALT < 7 L < 7 L Alkaline Phosphatase 64 68 Total Creatine Kinase 145 Troponin I < 0.002 C-Reactive Prot, Quant 22.1 H B-Natriuretic Peptide < 20 Total Protein 7.3 7.5 Albumin 4.4 4.4 Globulin 2.9 3.1 Albumin/Globulin Ratio 1.5 1.4 Triglycerides 62 Cholesterol 148 LDL Cholesterol, Calc 76 HDL Cholesterol 60 Cholesterol/HDL Ratio 2.5 L Lipase 38 Vitamin B12 937 H Procalcitonin 0.80 H TSH 0.22 L Free T4 1.21 Ur Collection Type Clean Catch Urine Color Yellow Urine Clarity Clear Urine pH 6.0 Ur Specific [place] 1.025 Urine Protein 1+ A Urine Glucose (UA) Negative Urine Ketones Trace Urine Blood 2+ A Urine Nitrite Negative Urine Bilirubin Negative Urine Urobilinogen (Auto) Negative Ur Leukocyte Esterase Negative Urine RBC 64 H Urine WBC 4 Ur Squamous Epith Cells < 1 Urine Bacteria None Ur Culture Indicated? Not Indicated Influenza A (Rapid) Negative Influenza B (Rapid) Negative 07/17/25 06:24 WBC RBC Hgb Hct MCV MCH MCHC RDW Std Deviation Plt Count Neut % (Auto) Lymph % (Auto) [place] % (Auto) Eos % (Auto) Baso % (Auto) Neut # (Auto) Lymph # (Auto) [place] # (Auto) Eos # (Auto) Baso # (Auto) Immature Gran # (Auto) Absolute Nucleated RBC Immature Gran % Nucleated RBC % ESR PT INR Sodium Potassium Chloride Carbon Dioxide Anion Gap BUN Creatinine Estim Creat Clear Calc eGFR BUN/Creatinine Ratio Glucose Estimated Ave Glu mg/dL Hemoglobin A1c Calculated Osmolality Lactic Acid 1.3 Calcium Corrected Calcium Phosphorus Magnesium Total Bilirubin AST ALT Alkaline Phosphatase Total Creatine Kinase Troponin I C-Reactive Prot, Quant B-Natriuretic Peptide Total Protein Albumin Globulin Albumin/Globulin Ratio Triglycerides Cholesterol LDL Cholesterol, Calc HDL Cholesterol Cholesterol/HDL Ratio Lipase Vitamin B12 Procalcitonin TSH Free T4 Ur Collection Type Urine Color Urine Clarity Urine pH Ur Specific [place] Urine Protein Urine Glucose (UA) Urine Ketones Urine Blood Urine Nitrite Urine Bilirubin Urine Urobilinogen (Auto) Ur Leukocyte Esterase Urine RBC Urine WBC Ur Squamous Epith Cells Urine Bacteria Ur Culture Indicated? Influenza A (Rapid) Influenza B (Rapid) Quality Measures Quality Measures sepsis Current suspected stage: ruled out Possible source: unknown Blood cultures ordered: completed in ED Antibiotic ordered: Yes Advance care planning discussed with:: patient and other Assessment & Plan Assessment Current Active Medications: Generic Name Dose Route Start Last Admin Trade Name Freq PRN Reason Stop Dose Admin Acetaminophen 650 mg 07/16/25 23:46 Acetaminophen 325 Mg Tablet PO 08/15/25 23:45 Q6H PRN Fever >100.4 or pain 1-3 Hydrocodone Bitart/Acetaminophen 1 tab 07/16/25 23:46 Hydrocodone/Apap 5/325 Tablet PO 07/21/25 23:45 Q4HR PRN PAIN SCALE 4-6 (Moderate Dextrose 25 ml 07/17/25 02:22 Dextrose 50%-Water Inj 50 Ml Syringe IV 08/16/25 02:21 Q15MIN PRN BG 50-70 responsive npo pt Dextrose 50 ml 07/17/25 02:22 Dextrose 50%-Water Inj 50 Ml Syringe IV 08/16/25 02:21 Q15MIN PRN BG <50 OR BG <70 & pt unresponsive Docusate Sodium 100 mg 07/17/25 09:00 07/17/25 08:39 Docusate Sod 100 Mg Capsule PO 08/16/25 08:59 Not Given QDAY [facility] Protocol Famotidine 20 mg 07/17/25 09:00 07/17/25 08:42 Famotidine Inj 10 Mg/Ml Vial 2 Ml IVP 08/16/25 08:59 20 mg Q12HR CORI Administration Glucagon 1 mg 07/17/25 02:22 Glucagon Inj 1 Mg Vial IM Q15MIN PRN BG <70, and no IV access Heparin Sodium (Porcine) 5,000 unit 07/17/25 09:00 07/17/25 08:43 Heparin Sod Inj 5000 Unit/Ml Vial SC 07/31/25 08:59 Not Given Q12HR CORI Lactated Ringer's 1,000 mls @ 75 mls/hr 07/16/25 23:45 07/17/25 00:43 Lactated Ringers IV 08/15/25 23:44 75 mls/hr .[id number] CORI Administration Piperacillin/Tazobactam/Dextrose 3.375 gm in 50 mls @ 12.5 mls/hr 07/17/25 06:16 07/17/25 06:31 Zosyn IV 07/24/25 06:15 12.5 mls/hr Q8HR CORI Administration Protocol Insulin Human Lispro 0 unit 07/17/25 07:30 07/17/25 07:31 Insulin Lispro (Admelog) 1 Unit/0.01 Ml Unit SC 08/16/25 07:29 Not Given ACHS CORI Protocol Ondansetron HCl 4 mg 07/16/25 23:46 Ondansetron Inj 2 Mg/Ml Inj 2 Ml IVP 08/15/25 23:45 Q6H PRN NAUSEA OR VOMITING Protocol Plan Patient is a 65-year-old female with history of hypertension, hyperlipidemia, and diabetes, who presented with multiple complaints including generalized weakness, fevers, headaches, nausea, vomiting, and abdominal pain. Admitted for fever of unknown origin. #Fever of unknown origin DDx: PNA, UTI, SLE?, Infection, cancer, autoimmune are top 3 causes of fever of unknown origin. Two to three days of fevers, MANN, [place], abd pain, right sided weakness. On admission temperature was 103F downtrended to 98.6F. Has no pain on physical exam, lungs were clear to auscultation and there was no CVA tenderness. Patient also denies any urinary issues. Concern for stones is minimal due to no T Bili elevation nor were stones seen on imaging. Minimal to no suspiscion of cholecystitis since no presenting altered mental status, no jaundice, abdomen is diffusely soft and nontender to palpation , Zambrano's sign negative. However there is a distended gallbladder, intra and extrahepatic biliary tract dilatation, with common bile duct 11 mm, no definite common bile duct stones. CTAP also showed concern for atelectasis vs pna. As well as mild dilatation of the renal collecting systems and proximal ureters bilaterally. Possible that a renal stone could have passed since isolated RBCs in urinalysis. -ESR:102, CRP: 2.1 -CK:145 Plan: -CHIRAG pending -MRCP pending -Acetominophen 650mg PO Q6H PRN Pain 1-3 -Narco 5 PO Q4HR PRN pain 4-7 -Zosyn 3.375g IV Q8HR for broad spectrum coverage #Syncope Patient had recent episode of one sided weakness, sensory deficits and slurring two - three days ago. Ongoing R sided numbness of upper and lower extremity. Currently outside the window for TNK. Imaging did not reveal any findings which would be present 6 hours after a stroke, let alone 24-48 hours as mentioned per interview. -TSH:0.22 Plan: - Physical therapy referral - Swallow referral - A1C:5.4 - ECHO pending - Consider consulting cards, Nicky is her transplant nurse practitioner. #Hx of DM Patient not taking any medications. Plan: -ISS -Bedside glucose ACHS #Hx of HTN No medications currently #Hx of HLD No medications currently Plan: -FUP lipid panel Health Maintenance: Code status: Full (per granddaughter and patient) DVT prophylaxis: Heparin 5000 subq Q12hr GI prophylaxis: Famotidine Diet: NPO pending swallow eval Poon: None, but bladder scans ordered PRN Lines: PIV Supplemental O2: NC Disposition: Admitted to [facility] for fever of unknown origin Assessment and plan discussed with my attending physician Dr. Jones and Dr. Santillan (PGY-2) Dr. Pennington (PGY-1) - Internal medicine resident Attending Provider Attestation/Addendum I have seen and examined the patient. I was physically present for the lott portions of the services provided including history, physical exam, diagnosis, treatment plans and orders. I agree with assessment and plan of care as documented by residents. Even though this this note was carefully revised there may still be minor errors in mushroom packer due to voice recognition software. Satish Jones MD
--- NOTE | 2025-07-17 13:43 | PC.SS ---
SS met with patient and granddaughter regarding her d/c plan. Pt is alert/oriented. Pt was admitted for Fever of Unknown Origin. Pt confirmed demographic and contact information is correct on facesheet. Pt resides with. Pt ambulates independently without assistance or DME. Pt is ok with all ADLs. SS provided verbal options for d/c to home or SNF. Patient?s pharmacy of choice is [facility] on [address] Pt named her granddaughter, Paola Madrigal medical decision maker if he is unable. Patient?s choice is to return home upon d/c. Pt followed up with PCP in June,. Family will provide transportation. D/C plan: Return home Next of Kin: Paola Madrigal, granddaughter, phone# [phone] PCP: [facility] Address: Correct on facesheet
[2025-07-17] MEDS: HEPARIN SOD INJ 5000 UNIT/ML VIAL SC (20:32)
[2025-07-17] MEDS: INSULIN LISPRO (AdmeLOG) 1 UNIT/0.01 ML UNIT SC (20:39)
[2025-07-18] VITALS (8 sets, daily range): BP systolic 110–142; BP diastolic 61–83; PULSE 42–80; RESP 14–97; TEMP 36.1–37.1; O2SAT 93–97
--- NOTE | 2025-07-18 | XR_ITS ---
MRI abdomen, without contrast. MRCP Date and time of exam: July 18, 2025, 1152 hours INDICATIONS: Abdominal pain this week, abdomen CT July 16, 2025 distended gallbladder with biliary tract dilatation Technique: Multiple axial and coronal images of the abdomen have been obtained with the Siemens 1.5T MRI scanner. Images obtained included T1 weighted transverse images, T2-weighted transverse images, T2-weighted transverse images fat-suppressed, T2 weighted haste fat suppressed transverse images, T1 weighted images, in and out of phase images, T2-weighted coronal images, breath hold, T2 weighted haze coronal images as well as T2 weighted coronal thick slab images, MRCP. Findings: Distended gallbladder, gallbladder wall does not appear edematous Abnormal enlargement common hepatic duct 12 mm , No common hepatic or common bile duct stones Pancreatic duct is not dilated No pancreatic mass Normal size spleen No hydronephrosis No ascites IMPRESSION: Abnormal extrahepatic biliary tract dilatation with abrupt termination of the distal common bile duct Consider ERCP follow-up to exclude malignant stricture at the ampulla
--- NOTE | 2025-07-18 | XR_ITS ---
EXAMINATION: MRI cervical spine with intravenous contrast TECHNIQUE: Multiple sagittal axial MRI cervical spine images post contrast INDICATIONS: Neck pain with right-sided arm weakness 4 days FINDINGS: Satisfactory Av Specialist cervical vertebral bodies No cervical fracture Intact odontoid No focal cervical disc protrusion No abnormal osseous epidural or cervical cord enhancement IMPRESSION: No acquired soft tissue spinal stenosis No abnormal osseous epidural or cervical cord enhancement
[2025-07-18] MEDS: HYDROmorphone INJ 2 MG/ML VIAL 1 MG IVP (02:37)
[2025-07-18] MEDS: RINGERS LACTATED 1000 ML 1,000 ML 75 ML IV (02:50)
[2025-07-18] MEDS: PIPER/TAZO 3.375 GM PREMIX 3.375 GM/50 ML BAG IV ×3 (05:15→21:32)
[2025-07-18 06:26] LABS: Basophils # (Auto) 0.0 Thou/mm3 (0.0-0.2); Basophils % (Auto) 0 % (0-2.5); Eosinophils # (Auto) 0.0 Thou/mm3 (0.0-0.5); Eosinophils % (Auto) 0 % (0-10); Hematocrit 29.8 % (36.0-46.0); Hemoglobin 9.7 g/dL (12.0-16.0); Immature Granulocytes Auto 0.08 Thou/mm3 (0.00-0.00); Lymphocytes # (Auto) 1.2 Thou/mm3 (1.0-4.8); Lymphocytes % (Auto) 11 % (10-50); Mean Corpuscular HGB Conc 32.6 g/dl (31.0-37.0); Mean Corpuscular Hemoglobin 30.4 pg (25.0-35.0); Mean Corpuscular Volume 93 fL (80-100); Monocytes # (Auto) 0.9 Thou/mm3 (0.0-0.8); Monocytes % (Auto) 8 % (0-12); Neutrophils # (Auto) 9.4 Thou/mm3 (1.8-7.7); Neutrophils % (Auto) 81 % (37-80); Nucleated Red Blood Cell # 0.00 Thou/mm3 (0.00-0.00); Nucleated Red Blood Cell % 0 /100 WBC (0); Platelet Count 218 Thou/mm3 (140-440); RDW Standard Deviation 41.1 fL (36.4-46.3); Red Blood Count 3.19 Miln/mm3 (4.00-5.20); White Blood Count 11.6 Thou/mm3 (3.6-11.0)
[2025-07-18 06:56] LABS: Alanine Aminotransferase 9 U/L (10-49); Albumin, Serum 3.7 gm/dL (3.4-4.8); Albumin/Globulin Ratio 1.3 (1.2-2.2); Alkaline Phosphatase 64 U/L (46-116); Anion Gap 9 (7-16); Aspartate Amino Transferase 40 U/L (0-34); BUN/Creatinine Ratio 20 Ratio (12-20); Bilirubin,Total 0.4 mg/dL (0.3-1.2); Blood Urea Nitrogen 18 mg/dL (9-23); Calcium 8.9 mg/dL (8.3-10.6); Calcium (Corrected) 9.1 mg/dL (8.5-10.1); Carbon Dioxide 28.0 mMol/L (20.0-31.0); Chloride 107 mMol/L (98-107); Creatinine (Component) 0.9 mg/dL (0.6-1.3); Estimated Creatinine Clearance 48.6 mL/min (>60); Globulin 2.8 gm/dL (2.3-3.5); Glucose 120 mg/dL (74-106); Magnesium 2.1 mg/dL (1.6-2.6); Osmolality,Calculated 289 (275-295); Phosphorous 3.3 mg/dL (2.4-5.1); Potassium 3.5 mMol/L (3.4-5.1); Sodium 144 mMol/L (136-145); Total Protein 6.5 gm/dL (5.7-8.2); eGFR > 60 See Note
--- NOTE | 2025-07-18 08:56 | PC.SS ---
Follow up note: On IV antibiotic. MRI pending. Pt will return home upon dc.
--- NOTE | 2025-07-18 09:26 | ESPR_ITS ---
<Statement entered by Polo Rodriguez MD - 07/19/25 05:25> Patient was seen and examined at bedside. I agree on the assessment and plan on this note as documented by resident Kennedy Pennington DO PGY1. 65-year-old female with past medical history of hypertension hyperlipidemia and diabetes admitted to [facility] for further workup of fever of unknown origin. Patient's workup shows suspicion of pneumonia versus atelectasis at lung bases, with distended gall bladder, biliary tract dilation and chest CT abdomen pelvis, patient did not undergo cardiac catheterization outpatient with Dr. Simmons on 05/14/25 which was unremarkable. Patient on admission had multiple episodes of fever, which has resolved, no fever noted in the last 24 hours. Further workup in the hospital echocardiogram for syncope workup shows EF 55 to 60%, normal diastolic function mildly elevated RVSP at 35. Cervical spine MRI is negative for any underlying abscess MRCP obtained shows abnormal extrahepatic biliary tract dilation with abrupt termination of the distal common bile duct. Patient does have mild leukocytosis today however alk phos and bilirubin is normal, minimal and elevation of AST noted gastroenterology was consulted, we will continue to follow liver function test, patient is on IV Zosyn which was started empirically on admission. Otherwise patient does have some right upper extremity weakness, will continue to monitor for fevers and LFTs. Case discussed with attending Dr. Clary Bui MD PGY-2 Documentation for date of: 07/18/25 Subjective Subjective Interval history: The patient has remained afebrile overnight, but continues to report right sided arm and leg pain. There are rigidity in physical exam in right arm and leg. When attempted to increase the arm above her shoulder, she complains of electric sensation going down her shoulder resembling radiculopathy. Her cardiologyst, Dr. Saunders, was contacted to clarify the indication for the angiography performed on 05/14 and to confirm whether any stents were placed, as IR inquired about prior stent placement. Per Cardiology, the patient received angiogram and stents were not placed. Cleared for MRI. Completed MRCP and MRI cervical spine. MRCP (07/18/2025): Abnormal extrahepatic biliary tract dilatation with abrupt termination of the distal common bile duct. Consider ERCP follow-up to exclude malignant stricture at the ampulla MRI Cervical Spine (07/18/2025): No acquired soft tissue spinal stenosis, No abnormal osseous epidural or cervical cord enhancement US venous doppler LE bilat (07/18/2025): showed negative DVT Orthostatic vitals (07/18/2025): Lyin/74, Standing 131/83. Patient was negative for orthostatic hypotension. Based on the CT a/p differential includes pneumonia and cholangitis. However, autoimmune and malignant etiologies also need to be ruled out. Consulted GI. On monday, possible ERCP. if patient develops fever, jaundice, RUQ abd pain during the weekend, patient will need to be transferred for high possibility of acute cholangitis. Exam Vital Signs Temp Pulse Resp BP Pulse Ox O2 Del Method 97.4 F 56 L 16 125/71 96 Room Air 07/18/25 08:00 07/18/25 08:00 07/18/25 08:00 07/18/25 08:00 07/18/25 08:00 07/18/25 08:00 Constitutional Comments: General: No acute distress, well nourished, AAO x3 Eye: PERRL, EOMI, normal conjunctiva, no scleral icterus HENT: Normocephalic, atraumatic, hearing intact to conversation at normal volume, moist oral mucosa Neck: Supple, non-tender, no JVD, no lymphadenopathy Lungs: Non-labored respirations, symmetric chest rise, Clear to auscultate bilaterally, No wheezing, rhonchi, crackles Heart: Peripheral pulses intact bilaterally, Regular Rate and Rhythm. Abdomen: Soft, non-tender, non-distended, no palpable masses Musculoskeletal: Normal range of motion and strength, No cyanosis or edema, No visible joint swelling, Right sided numbness and pain on palpation. Reduced ROM of right arm and leg. Skin: Skin is warm, dry, no rashes or lesions. Psychiatric: Cooperative, appropriate mood and affect, Awake and alert, not agitated Neuro: Cranial nerves II-XII grossly intact. Sensations intact to light touch. Objective Labs 07/19/25 05:46 07/19/25 05:46 Labs: Laboratory Results - last 24 hr 07/18/25 05:20 WBC 11.6 H D RBC 3.19 L Hgb 9.7 L D Hct 29.8 L MCV 93 MCH 30.4 MCHC 32.6 RDW Std Deviation 41.1 Plt Count 218 Neut % (Auto) 81 H Lymph % (Auto) 11 [place] % (Auto) 8 Eos % (Auto) 0 Baso % (Auto) 0 Neut # (Auto) 9.4 H Lymph # (Auto) 1.2 [place] # (Auto) 0.9 H Eos # (Auto) 0.0 Baso # (Auto) 0.0 Immature Gran # (Auto) 0.08 H Absolute Nucleated RBC 0.00 Immature Gran % 1 H Nucleated RBC % 0 Sodium 144 Potassium 3.5 D Chloride 107 Carbon Dioxide 28.0 Anion Gap 9 BUN 18 Creatinine 0.9 Estim Creat Clear Calc 48.6 L eGFR > 60 BUN/Creatinine Ratio 20 Glucose 120 H Calculated Osmolality 289 Calcium 8.9 Corrected Calcium 9.1 Phosphorus 3.3 Magnesium 2.1 Total Bilirubin 0.4 AST 40 H ALT 9 L Alkaline Phosphatase 64 Total Protein 6.5 Albumin 3.7 D Globulin 2.8 Albumin/Globulin Ratio 1.3 Quality Measures Quality Measures sepsis Current suspected stage: ruled out Possible source: unknown Blood cultures ordered: completed in ED Antibiotic ordered: Yes Advance care planning discussed with:: patient and other Assessment & Plan Assessment Current Active Medications: Generic Name Dose Route Start Last Admin Trade Name Freq PRN Reason Stop Dose Admin Acetaminophen 650 mg 07/16/25 23:46 Acetaminophen 325 Mg Tablet PO 08/15/25 23:45 Q6H PRN Fever >100.4 or pain 1-3 Hydrocodone Bitart/Acetaminophen 1 tab 07/16/25 23:46 Hydrocodone/Apap 5/325 Tablet PO 07/21/25 23:45 Q4HR PRN PAIN SCALE 4-6 (Moderate Dextrose 25 ml 07/17/25 02:22 Dextrose 50%-Water Inj 50 Ml Syringe IV 08/16/25 02:21 Q15MIN PRN BG 50-70 responsive npo pt Dextrose 50 ml 07/17/25 02:22 Dextrose 50%-Water Inj 50 Ml Syringe IV 08/16/25 02:21 Q15MIN PRN BG <50 OR BG <70 & pt unresponsive Docusate Sodium 100 mg 07/17/25 09:00 07/17/25 08:39 Docusate Sod 100 Mg Capsule PO 08/16/25 08:59 Not Given QDAY CORI Protocol Famotidine 20 mg 07/17/25 09:00 07/17/25 20:19 Famotidine Inj 10 Mg/Ml Vial 2 Ml IVP 08/16/25 08:59 20 mg Q12HR CORI Administration Glucagon 1 mg 07/17/25 02:22 Glucagon Inj 1 Mg Vial IM Q15MIN PRN BG <70, and no IV access Heparin Sodium (Porcine) 5,000 unit 07/17/25 09:00 07/17/25 20:32 Heparin Sod Inj 5000 Unit/Ml Vial SC 07/31/25 08:59 5,000 unit Q12HR CORI Administration Lactated Ringer's 1,000 mls @ 75 mls/hr 07/16/25 23:45 07/18/25 02:50 Lactated Ringers IV 08/15/25 23:44 75 mls/hr .[id number] CORI Administration Piperacillin/Tazobactam/Dextrose 3.375 gm in 50 mls @ 12.5 mls/hr 07/17/25 06:16 07/18/25 05:15 Zosyn IV 07/24/25 06:15 12.5 mls/hr Q8HR CORI Administration Protocol Insulin Human Lispro 0 unit 07/18/25 06:00 07/18/25 06:00 Insulin Lispro (Admelog) 1 Unit/0.01 Ml Unit SC 08/17/25 05:59 Not Given Q6HR CORI Protocol Ondansetron HCl 4 mg 07/16/25 23:46 Ondansetron Inj 2 Mg/Ml Inj 2 Ml IVP 08/15/25 23:45 Q6H PRN NAUSEA OR VOMITING Protocol Plan Patient is a 65-year-old female with history of hypertension, hyperlipidemia, and diabetes, who presented with multiple complaints including generalized weakness, fevers, headaches, nausea, vomiting, and abdominal pain. Admitted for fever of unknown origin. #Fever of unknown origin DDx: PNA, UTI, SLE?, Infection, cancer, autoimmune are top 3 causes of fever of unknown origin. Two to three days of fevers, MANN, [place], abd pain, right sided weakness. On admission temperature was 103F downtrended to 98.6F. Has no pain on physical exam, lungs were clear to auscultation and there was no CVA tenderness. Patient also denies any urinary issues. Concern for stones is minimal due to no T Bili elevation nor were stones seen on imaging. Minimal to no suspiscion of cholecystitis since no presenting altered mental status, no jaundice, abdomen is diffusely soft and nontender to palpation , Zambrano's sign negative. However there is a distended gallbladder, intra and extrahepatic biliary tract dilatation, with common bile duct 11 mm, no definite common bile duct stones. CTAP also showed concern for atelectasis vs pna. As well as mild dilatation of the renal collecting systems and proximal ureters bilaterally. Possible that a renal stone could have passed since isolated RBCs in urinalysis. -ESR:102, CRP: 2.1 -CK:145. T bili:0.9 on admission. -There are rigidity in physical exam in right arm and leg. When attempted to increase the arm above her shoulder, she complains of electric sensation going down her shoulder resembling radiculopathy. -US venous doppler LE bilat (07/18/2025): showed negative DVT -MRCP (07/18/2025): Abnormal extrahepatic biliary tract dilatation with abrupt termination of the distal common bile duct. Consider ERCP follow-up to exclude malignant stricture at the ampulla -MRI Cervical Spine (07/18/2025): No acquired soft tissue spinal stenosis, No abnormal osseous epidural or cervical cord enhancement Plan: -CHIRAG pending -Acetominophen 650mg PO Q6H PRN Pain 1-3 -Narco 5 PO Q4HR PRN pain 4-7 -Zosyn 3.375g IV Q8HR for broad spectrum coverage #Syncope Patient had recent episode of one sided weakness, sensory deficits and slurring two - three days ago. Ongoing R sided numbness of upper and lower extremity. Currently outside the window for TNK. Imaging did not reveal any findings which would be present 6 hours after a stroke, let alone 24-48 hours as mentioned per interview. -TSH:0.22 -Orthostatic vitals (07/18/2025): Lyin/74, Standing 131/83. Patient was negative for orthostatic hypotension. Plan: - Physical therapy referral - Swallow referral - A1C:5.4 - ECHO pending - Consider consulting cards, Siddontadarion is her press supervisor. #Hx of DM Patient not taking any medications. Plan: -ISS -Bedside glucose ACHS #Hx of HTN No medications currently #Hx of HLD No medications currently Plan: -FUP lipid panel Health Maintenance: Code status: Full (per granddaughter and patient) DVT prophylaxis: Heparin 5000 subq Q12hr GI prophylaxis: Famotidine Diet: Low carb consistent diet Poon: None, but bladder scans ordered PRN Lines: PIV Supplemental O2: NC Disposition: Admitted to [facility] for fever of unknown origin Assessment and plan discussed with my attending physician Dr. Romero and Dr. Rodriguez (PGY-2) Dr. Pennington (PGY-1) - Internal medicine resident Attending Provider Attestation/Addendum Clary Younger DO, attest that I was physically present for the lott portions of the service and evaluated the patient with the resident and I reviewed and discussed the case with the resident and agree with the resident's findings and plans of care as documented above Patient seen and eval this a.m. She states that she has pain in her neck. Negative spurling test. She describes the pain has tightness in her neck muscles. No meningeal signs noted. Patient stated that she had fallen at home due to her weakness at home before coming to the hospital. She reports pain in her right leg and right shoulder. Muscle strength is 4-/5 in RUE and RLE. 5/5 in LUE and LLE. C-spine MRI was done showing no soft tissue spinal stenosis, abnormal osseus epidural or cervical cord enhancement. MRCP however showed abnormal extrahepatic biliary tract dilatation with abrupt termination of the distal CBD. LFTs are within normal limits. Will f/u with GI recommendations. Patient does not want to take tylenol or norco, requesting ibuprofen.
[2025-07-18] MEDS: HEPARIN SOD INJ 5000 UNIT/ML VIAL SC ×2 (09:40→20:32)
[2025-07-18] MEDS: FAMOTIDINE INJ 10 MG/ML VIAL 2 ML 20 MG IVP ×2 (09:40→20:32)
[2025-07-18] MEDS: DOCUSATE SOD 100 MG CAPSULE PO (09:41)
--- NOTE | 2025-07-18 10:30 | PD.IMCONS ---
HPI Data of Consult Requesting Physician: Juan Adam MD Primary Care Provider: Danyelle Heredia NP Consult Narrative History of present illness: This is a65 yr female with PMH of chronic pain on tramadol, gabapentin, cyclobenzaprine , PVD and PVD intervention doen in the past chief complaint of right side weakness that started 2 days ago. Stated that after using the restroom, she had syncopal episode with LOC for 1-2 minutes. pt denies cardiac symptoms no stents were placed - ok for MRI cc:: cc: Juan Adam MD Meds Home Medications and Allergies Home Medications ?Medication ?Instructions ?Recorded ?Confirmed ?Type gabapentin 300 mg capsule 300 mg PO QDAY ##30 07/08/16 07/17/25 History cyclobenzaprine 10 mg tablet 10 mg PO HS 07/17/25 07/17/25 History tramadol 50 mg tablet 50 mg PO QID 07/17/25 07/17/25 History Allergies Allergy/AdvReac Type Severity Reaction Status Date / Time ceftriaxone (From Rocephin) Allergy Hives Verified 07/16/25 19:04 Exam Vital Signs Temp Pulse Resp BP Pulse Ox O2 Del Method 97.4 F 56 L 16 125/71 96 Room Air 07/18/25 08:00 07/18/25 08:00 07/18/25 08:00 07/18/25 08:00 07/18/25 08:00 07/18/25 08:00 Routine HEENT Exam Head: Present normocephalic and atraumatic Eye: Present EOMI and PERRL ENT: Present mucous membranes moist Routine Neck Exam Neck: Present supple and trachea midline Routine Respiratory Exam Respiratory: Present chest non-tender, lungs clear, normal breath sounds and no resp distress Routine Cardiovascular Exam Cardiovascular: Present RRR Routine Abdominal Exam Abdominal: Present soft and normoactive bowel sounds Routine Extremities Exam Extremities: Present full ROM Routine Skin Exam Skin: Present intact, dry and warm Routine Neurological Exam Neurological: Present alert, oriented X3 and CN II-XII intact Routine Psychiatric Exam Psychiatric: Present normal affect and normal thought process Results Labs 07/18/25 05:20 07/18/25 05:20 Labs: Short CBC 07/18/25 Range/Units 05:20 WBC 11.6 H D (3.6-11.0) Thou/mm3 Hgb 9.7 L D (12.0-16.0) g/dL Hct 29.8 L (36.0-46.0) % Plt Count 218 (140-440) Thou/mm3 BMP 07/18/25 05:20 Sodium 144 Potassium 3.5 D Chloride 107 Carbon Dioxide 28.0 BUN 18 Creatinine 0.9 Glucose 120 H Calcium 8.9 Liver Function 07/18/25 Range/Units 05:20 Total Bilirubin 0.4 (0.3-1.2) mg/dL AST 40 H (0-34) U/L ALT 9 L (10-49) U/L Alkaline Phosphatase 64 (46-116) U/L Albumin 3.7 D (3.4-4.8) gm/dL Assessment and Plan Assessment and plan (1) Arthritis of right wrist: Status: Acute (2) Acute right-sided weakness: Status: Acute (3) Acute febrile illness: Status: Acute Additional Assessment & Plan Additional Plan: pt had PVD evaluation ; no stents were placed -OK for MRI
--- NOTE | 2025-07-18 11:02 | XR_ITS ---
Examination: Venous duplex lower extremity sonogram, bilateral. Date and time of exam: July 18, 2025, 12:30 p.m. INDICATION: Right leg pain beginning 1 year ago Technique: Multiple sonographic images of the deep venous system have been obtained. B-mode/2-D grayscale imaging of vascular structures and Doppler spectral analysis (waveforms) and color performed Both legs are examined. Findings: Deep venous systems do not demonstrate abnormal echogenicity. All visualized deep veins exhibit compressibility. All visualized deep veins exhibit augmentation. Impression: Negative for deep vein thrombosis
[2025-07-18] MEDS: HYDROcodone/APAP 5/325 TABLET 1 TAB PO (15:17)
--- NOTE | 2025-07-18 16:47 | PD.IMCONS ---
HPI Data of Consult Requesting Physician: Juan Adam MD Primary Care Provider: Danyelle Heredia NP Consult Narrative Reason for consult: Abnormal MRCP History of present illness: 65-year-old female in the hospital for fever of unknown origin has history of essential hypertension syncope hyperlipidemia and diabetes mellitus I been consulted for initial CT scan of the abdomen pelvis done with contrast on admission showed dilated gallbladder but the gallbladder wall was not thickened CBD was about 11 mm MRCP done showed dilated common bile duct of about 12 mm no dilatation of the pancreatic duct and no thickening of the gallbladder wall gallbladder slightly distended and there is an abrupt termination of the distal common bile duct cc:: cc: Juan Adam MD Review of Systems Review of Systems Systems Reviewed: All systems reviewed, normal except as documented Past Medical History Surgical History OTHER SURGICAL HX: As in the history of present illness Meds Home Medications and Allergies Home Medications ?Medication ?Instructions ?Recorded ?Confirmed ?Type gabapentin 300 mg capsule 300 mg PO QDAY ##30 07/08/16 07/17/25 History cyclobenzaprine 10 mg tablet 10 mg PO HS 07/17/25 07/17/25 History tramadol 50 mg tablet 50 mg PO QID 07/17/25 07/17/25 History Allergies Allergy/AdvReac Type Severity Reaction Status Date / Time ceftriaxone (From Rocephin) Allergy Hives Verified 07/16/25 19:04 Exam Vital Signs Temp Pulse Resp BP Pulse Ox O2 Del Method 97.0 F 58 L 18 129/74 93 L Room Air 07/18/25 12:00 07/18/25 12:00 07/18/25 12:00 07/18/25 12:00 07/18/25 12:00 07/18/25 12:00 Routine Respiratory Exam Comments: Normal to auscultation Routine Abdominal Exam Comments: Soft nontender Results Labs 07/18/25 05:20 07/18/25 05:20 Labs: Short CBC 07/18/25 Range/Units 05:20 WBC 11.6 H D (3.6-11.0) Thou/mm3 Hgb 9.7 L D (12.0-16.0) g/dL Hct 29.8 L (36.0-46.0) % Plt Count 218 (140-440) Thou/mm3 BMP 07/18/25 05:20 Sodium 144 Potassium 3.5 D Chloride 107 Carbon Dioxide 28.0 BUN 18 Creatinine 0.9 Glucose 120 H Calcium 8.9 Liver Function 07/18/25 Range/Units 05:20 Total Bilirubin 0.4 (0.3-1.2) mg/dL AST 40 H (0-34) U/L ALT 9 L (10-49) U/L Alkaline Phosphatase 64 (46-116) U/L Albumin 3.7 D (3.4-4.8) gm/dL Assessment and Plan Additional Assessment & Plan Additional Plan: Abnormal MRCP# with slightly distended gallbladder extrahepatic biliary dilatation no common bile duct stone no dilatation of the PD This abnormality has been there for quite some time Could be a benign versus malignant stricture Plan Follow liver function test Continue the antibiotic coverage to prevent cholangitis Patient will need ERCP which I will talk to Dr. cSott on Monday and get it done prior to discharge At the moment patient is not having cholangitis Continue to monitor Thank you very much for the opportunity to participate in the care of this patient Other medical problems include FUO Syncope Diabetes mellitus type 2 Hyperlipidemia
[2025-07-19] VITALS (9 sets, daily range): BP systolic 130–168; BP diastolic 72–92; PULSE 55–67; RESP 14–97; TEMP 36.1–37.1; O2SAT 94–97
[2025-07-19] MEDS: PIPER/TAZO 3.375 GM PREMIX 3.375 GM/50 ML BAG IV ×2 (05:30→13:41)
[2025-07-19 06:10] LABS: Basophils # (Auto) 0.0 Thou/mm3 (0.0-0.2); Basophils % (Auto) 0 % (0-2.5); Eosinophils # (Auto) 0.0 Thou/mm3 (0.0-0.5); Eosinophils % (Auto) 0 % (0-10); Hematocrit 33.3 % (36.0-46.0); Hemoglobin 10.7 g/dL (12.0-16.0); Immature Granulocytes Auto 0.03 Thou/mm3 (0.00-0.00); Lymphocytes # (Auto) 3.7 Thou/mm3 (1.0-4.8); Lymphocytes % (Auto) 48 % (10-50); Mean Corpuscular HGB Conc 32.1 g/dl (31.0-37.0); Mean Corpuscular Hemoglobin 31.0 pg (25.0-35.0); Mean Corpuscular Volume 97 fL (80-100); Monocytes # (Auto) 0.6 Thou/mm3 (0.0-0.8); Monocytes % (Auto) 7 % (0-12); Neutrophils # (Auto) 3.4 Thou/mm3 (1.8-7.7); Neutrophils % (Auto) 44 % (37-80); Nucleated Red Blood Cell # 0.00 Thou/mm3 (0.00-0.00); Nucleated Red Blood Cell % 0 /100 WBC (0); Platelet Count 216 Thou/mm3 (140-440); RDW Standard Deviation 42.8 fL (36.4-46.3); Red Blood Count 3.45 Miln/mm3 (4.00-5.20); White Blood Count 7.8 Thou/mm3 (3.6-11.0)
[2025-07-19 06:38] LABS: Alanine Aminotransferase 20 U/L (10-49); Albumin, Serum 4.0 gm/dL (3.4-4.8); Albumin/Globulin Ratio 1.5 (1.2-2.2); Alkaline Phosphatase 70 U/L (46-116); Anion Gap 12 (7-16); Aspartate Amino Transferase 71 U/L (0-34); BUN/Creatinine Ratio 14 Ratio (12-20); Bilirubin,Direct < 0.1 mg/dL (0.0-0.3); Bilirubin,Total 0.3 mg/dL (0.3-1.2); Blood Urea Nitrogen 15 mg/dL (9-23); Calcium 8.9 mg/dL (8.3-10.6); Calcium (Corrected) 8.9 mg/dL (8.5-10.1); Carbon Dioxide 25.3 mMol/L (20.0-31.0); Chloride 108 mMol/L (98-107); Creatinine (Component) 1.1 mg/dL (0.6-1.3); Estimated Creatinine Clearance 39.8 mL/min (>60); Globulin 2.7 gm/dL (2.3-3.5); Glucose 100 mg/dL (74-106); Magnesium 2.0 mg/dL (1.6-2.6); Osmolality,Calculated 289 (275-295); Phosphorous 3.4 mg/dL (2.4-5.1); Potassium 4.0 mMol/L (3.4-5.1); Sodium 145 mMol/L (136-145); Total Protein 6.7 gm/dL (5.7-8.2); eGFR 55 See Note
[2025-07-19] MEDS: FAMOTIDINE INJ 10 MG/ML VIAL 2 ML 20 MG IVP (08:34)
[2025-07-19] MEDS: DOCUSATE SOD 100 MG CAPSULE PO (08:35)
[2025-07-19] MEDS: HEPARIN SOD INJ 5000 UNIT/ML VIAL SC (08:35)
[2025-07-19] MEDS: RINGERS LACTATED 500 ML 500 ML 999 ML IV (08:37)
--- NOTE | 2025-07-19 14:03 | ESDS_ITS ---
<Statement entered by Clary Romero DO - 07/19/25 15:37> I, Clary Romero DO, attest that I was physically present for the lott portions of the service and evaluated the patient with the resident and I reviewed and discussed the case with the resident and agree with the resident's findings and plans of care as documented above Planned Discharge Date 07/19/25 DS: Providers Provider Date of admission: 07/16/25 23:44 Primary care physician: Danyelle Heredia NP Admitting Provider: Juan Adam MD Attending Provider on Admission: Juan Adam MD Consults: 07/16/25 23:51 Referral Speech Therapy Routine Comment: 07/17/25 01:08 Referral Physical Therapy Routine Comment: Physician Instructions: 07/17/25 18:18 Consult to Cardiology Routine Comment: Consulting Provider: Marleen Saunders 07/18/25 11:03 Referral Physical Therapy Routine Comment: Physician Instructions: 07/18/25 15:38 Consult to Gastroenterology Routine Comment: Biliary Stricture Consulting Provider: Eliseo Rivera Attending Provider on DC: Clary Romero DO Discharging Provider: Theodore Santillan MD DS: Diagnosis Problem List Completed Was Problem List Reviewed/Reconciled?: Yes Hospital Course Hospital Course Hospital course: 65-year-old female with past medical history of hypertension hyperlipidemia and diabetes admitted to [facility] for further workup of fever of unknown origin. Patient's workup showed suspicion of pneumonia versus atelectasis at lung bases, with distended gall bladder, biliary tract dilation and chest CT abdomen pelvis. Patient on admission had multiple episodes of fever, which since resolved. Echocardiogram for syncope workup shows EF 55 to 60%, normal diastolic function mildly elevated RVSP at 35. Cervical spine MRI is negative for any underlying abscess. MRCP obtained shows abnormal extrahepatic biliary tract dilation with abrupt termination of the distal common bile duct, however LFT's normal during stay. Gastroenterology was consulted, outpatient follow up. IV Zosyn was started empirically on admission, however cultures negative. Patient medically cleared for discharge. Diagnoses: #Fever of unknown origin, likely viral URI #Syncope #Hx of DM #Hx of HTN #Hx of HLD Discharge plan: - Complete treatment with levofloxacin for 7 more days to cover empirically for any intra-abdominal infection - Continue all other home medications as below - Call Dr. Scott's office and schedule an outpatient appointment for further scheduling and evaluation for ERCP - Return to emergency department if your symptoms worsen - Follow-up with your primary care physician within 1 week - Recommend outpatient referral for neurology for further testing/assessment of weakness Status at Discharge Overall status at discharge: patient is progressing back to baseline Time Spent with Patient Time attestation: Total time spent providing and/or coordinating discharge services: Time spent: Greater than 30 minutes Exam Vital Signs Temp Pulse Resp BP Pulse Ox O2 Del Method 98.8 F 67 16 148/88 H 97 Room Air 07/19/25 13:38 07/19/25 13:38 07/19/25 13:38 07/19/25 13:38 07/19/25 13:38 07/19/25 13:38 Narrative Exam General: No acute distress, well nourished, AAO x3 Eye: PERRL, EOMI, normal conjunctiva, no scleral icterus HENT: Normocephalic, atraumatic, hearing intact to conversation at normal volume, moist oral mucosa Neck: Supple, non-tender, no JVD, no lymphadenopathy Lungs: Non-labored respirations, symmetric chest rise, Clear to auscultate bilaterally, No wheezing, rhonchi, crackles Heart: Peripheral pulses intact bilaterally, Regular Rate and Rhythm. Abdomen: Soft, non-tender, non-distended, no palpable masses Musculoskeletal: Normal range of motion and strength, No cyanosis or edema, No visible joint swelling, mild right arm weakness, improved. Skin: Skin is warm, dry, no rashes or lesions. Psychiatric: Cooperative, appropriate mood and affect, Awake and alert, not agitated Neuro: Cranial nerves II-XII grossly intact. Sensations intact to light touch. Discharge Plan Plan Patient Disposition: HOME (Self Care) Patient condition on transfer: Stable Care Plan Goals: - Complete treatment with levofloxacin for 7 more days to cover empirically for any intra-abdominal infection - Continue all other home medications as below - Call Dr. Scott's office and schedule an outpatient appointment for further scheduling and evaluation for ERCP - Return to emergency department if your symptoms worsen - Follow-up with your primary care physician within 1 week - Recommend outpatient referral for neurology for further testing/assessment of weakness Prescriptions/Referrals Prescriptions/Med Rec: New levofloxacin 750 mg tablet 750 mg PO QDAY Qty: 7 0RF Continued gabapentin 300 MG capsule 300 mg PO QDAY Qty: 30 cyclobenzaprine 10 mg tablet 10 mg PO HS Patient Comments: TAKE 1 TABLET BY MOUTH EVERY NIGHT NEEDED tramadol 50 mg tablet 50 mg PO QID Qty: 4 0RF Patient Comments: TAKE 2 TABLETS BY MOUTH 4 TIMES A DAY Discontinued ibuprofen 800 mg tablet 800 mg PO TID PRN (Reason: pain) Qty: 60 0RF Referrals: Daynelle Heredia NP [Primary Care Provider] Kiran Del Valle MD [Physician, Gastroenterology] Patient/Caregiver Discharge Instructions Discharge Activity: activity as tolerated Education Materials: Anatomy Digestive System Ch, ED FUO Adult Print Language: Syriac Stand Alone Forms: Juany Award Info., Patient Portal Info Letter Discharge Order Discharge Orders: Discharge (Routine); Ordered 07/19/25 Ordered By: Theodore Santillan Quality Discharge Quality Measures VTE prophylaxis
--- NOTE | 2025-07-19 20:49 | PD.IMPROG ---
Documentation for date of: 07/19/25 Subjective Subjective Interval history: Late entry for the note Case discussed with the internal medicine team Okay to discharge patient home and the internal medicine team will make an appointment for the patient to be seen with Dr. Scott next week for a possible ERCP LFTs remain normal except mild elevation of the AST at 71 White, has come down from 11.6 and has normalized Exam Vital Signs Temp Pulse Resp BP Pulse Ox O2 Del Method 98.8 F 67 16 148/88 H 97 Room Air 07/19/25 13:38 07/19/25 13:38 07/19/25 13:38 07/19/25 13:38 07/19/25 13:38 07/19/25 13:38 Objective Labs 07/19/25 05:46 07/19/25 05:46 Labs: Laboratory Results - last 24 hr 07/19/25 05:46 WBC 7.8 RBC 3.45 L Hgb 10.7 L Hct 33.3 L MCV 97 MCH 31.0 MCHC 32.1 RDW Std Deviation 42.8 Plt Count 216 Neut % (Auto) 44 Lymph % (Auto) 48 [place] % (Auto) 7 Eos % (Auto) 0 Baso % (Auto) 0 Neut # (Auto) 3.4 Lymph # (Auto) 3.7 [place] # (Auto) 0.6 Eos # (Auto) 0.0 Baso # (Auto) 0.0 Immature Gran # (Auto) 0.03 H Absolute Nucleated RBC 0.00 Immature Gran % 0 Nucleated RBC % 0 Sodium 145 Potassium 4.0 D Chloride 108 H Carbon Dioxide 25.3 Anion Gap 12 BUN 15 Creatinine 1.1 Estim Creat Clear Calc 39.8 L eGFR 55 L BUN/Creatinine Ratio 14 Glucose 100 Calculated Osmolality 289 Calcium 8.9 Corrected Calcium 8.9 Phosphorus 3.4 Magnesium 2.0 Total Bilirubin 0.3 Direct Bilirubin < 0.1 AST 71 H ALT 20 Alkaline Phosphatase 70 Total Protein 6.7 Albumin 4.0 Globulin 2.7 Albumin/Globulin Ratio 1.5 Impressions Impression: Abnormal MRCP showing tapering of the distal common bile duct with blunt ending Outpatient ERCP as discussed with internal medicine team Assessment & Plan A&P Narrative Abnormal MRCP# with slightly distended gallbladder extrahepatic biliary dilatation no common bile duct stone no dilatation of the PD This abnormality has been there for quite some time Could be a benign versus malignant stricture Plan Follow liver function test Continue the antibiotic coverage to prevent cholangitis Patient will need ERCP which I will talk to Dr. Scott on Monday and get it done prior to discharge At the moment patient is not having cholangitis Continue to monitor Thank you very much for the opportunity to participate in the care of this patient Other medical problems include FUO Syncope Diabetes mellitus type 2 Hyperlipidemia Time Spent With Patient Time: Total time spent is greater than 50% in coordination of care (as documented) at patient's floor/unit and/or counseling patient:
[2025-07-24 06:35] LABS: ANA Screen, IFA POSITIVE (NEGATIVE)
[2025-07-24 06:37] LABS: ANA Titer 1:320 titer
[2025-07-25 06:42] LABS: Vitamin B1 (Thiamine)* 8 nmol/L (8-30)
== END 2025-07-19 15:38 | disposition home or self-care (01) | DRG 864 ==
LOC: SERX 18:16 → SERHOLD 07-17 → S3NX 07-17 03:11
PROVIDERS: Specialist; Admitting Provider Student in an Organized Health Care Education/Training Program; Emergency Provider Family Medicine; PCP Nurse Practitioner Family; Visit Provider Student in an Organized Health Care Education/Training Program
DX: R50.9 Fever, unspecified (principal); I10 Essential (primary) hypertension; E78.5 Hyperlipidemia, unspecified; R47.81 Slurred speech; E11.51 Type 2 diabetes mellitus with diabetic peripheral angiopathy without gangrene; M19.031 Primary osteoarthritis, right wrist; R53.1 Weakness; K83.8 Other specified diseases of biliary tract; G89.29 Other chronic pain; K82.8 Other specified diseases of gallbladder; Z79.84 Long term (current) use of oral hypoglycemic drugs; W19.XXXA Unspecified fall, initial encounter; Y92.009 Unspecified place in unspecified non-institutional (private) residence as the place of occurrence of the external cause
CPT/HCPCS: 36415; 51701; 70450; 71045; 71260; 72142; 73100; 74177; 74181; 80053; 80061; 80076; 81001; 82550; 82607; 83036; 83605; 83690; 83735; 83880; 84100; 84145; 84425; 84439; 84443; 84484; 85025; 85610; 85652; 86038; 86140; 87040; 87502; 87635; 92610; 93005; 93225; 93306; 93970; 96361; 96365; 96374; 96375; 97162; 99285; A4649; A9577; J0696; J1171; J1644; J1815; J1885; J2543; J2919; J3490; J7050; J7120; J7999; Q9967; A9270

== ENCOUNTER 2025-07-27 17:08 | Emergency (ER) | payer MEDICARE, MEDICAID, SELFPAY ==
[2025-07-27] VITALS (8 sets, daily range): BP systolic 106–132; BP diastolic 51–93; PULSE 65–90; RESP 17–99; TEMP 37.2–39.3; O2SAT 95–100; BMI 23.3
--- NOTE | 2025-07-27 17:13 | EKG_ITS ---
[facility] Test Date: 2025-07-27 Pat Name: TATYANA CARPIO Department: Room: - Gender: Female [employer]: : 1960 Requested By: Romario Novak Order Number: [id number] Reading MD: Romario Novak Measurements Intervals [place] Rate: 76 P: 68 SD: 158 QRS: 10 QRSD: 93 T: 31 QT: 353 QTc: 399 Interpretive Statements SINUS RHYTHM Compared to ECG 07/16/2025 16:05:00 Sinus tachycardia no longer present Ventricular premature complex(es) no longer present Incomplete right bundle-branch block no longer present /store/S0/[id number].pdf
--- NOTE | 2025-07-27 17:13 | XR_ITS ---
EXAMINATION: Right knee 3 views TECHNIQUE: AP lateral right knee 3 views Date and time: July 27, 2025, 1721 hours INDICATIONS: Patient fell 2 weeks ago with injury to the knee, knee pain. FINDINGS: No acute fracture No dislocation Small knee effusion IMPRESSION: No acute fracture
--- NOTE | 2025-07-27 17:14 | XR_ITS ---
EXAMINATION: AP chest single view TECHNIQUE: AP portable supine chest single view Date and time: July 27, 2025, 1720 hours, comparison July 16, 2025 INDICATIONS: Sepsis alert today. FINDINGS: Lordotic chest. Normal heart size No lobar pneumonia Prominent osteopenia IMPRESSION: No pneumonia identified
--- NOTE | 2025-07-27 17:14 | EDNOTE_ITS ---
ED General RME/HPI General Chief complaint: Weakness Stated complaint: FEVER/WEAKNESS Time Seen by Provider: 07/27/25 17:13 Arrival date/time: 07/27/25 17:08 CC: Right knee pain left flank pain HPI onset several days ago, the patient has been lying bed complaining of these pains presents to the ER via EMS who report borderline tachycardia warm to touch. Patient was recently discharged from here after cholecystectomy and has completed her antibiotics. Patient denies chest pain shortness of breath or difficulty breathing. Related Data Home Medications ?Medication ?Instructions ?Recorded ?Confirmed gabapentin 300 mg capsule 300 mg PO QDAY ##30 07/08/16 07/17/25 cyclobenzaprine 10 mg tablet 10 mg PO HS 07/17/2507/05 Previous Rx's ?Medication ?Instructions ?Recorded levofloxacin 750 mg tablet 750 mg PO QDAY #7 tabs 07/05 01/26 tramadol 50 mg tablet 50 mg PO QID #4 tabs 5 prednisone 20 mg tablet See Taper PO BID 5 days #10 tabs 07/27/25 Allergies Allergy/AdvReac Type Severity Reaction Status Date / Time ceftriaxone (From Rocephin) Allergy Hives Verified 07/27/25 17:18 Review of Systems Review of Systems Narrative Review of Systems: GEN: No fever, no chills, no weight loss EYES: No discharge, no visual changes, no pain HEENT: No ear pain, no congestion, no sore throat PULM: No shortness of breath, no cough, no congestion CV: No chest pain, no dyspnea on exertion, no palpitations GI: No nausea, no vomiting, no diarrhea, no pain, no constipation : No frequency, no urgency, no dysuria MUSC/SKEL: + joint pain, + back pain SKIN: No rash PSYCH: No hallucinations, no depression HEME/LYMPH: No easy bleeding or bruising tendencies NEURO: No weakness, no headache Past Medical History Past Medical History CARDIAC: Positive Cardiac Disorders, Hypercholesterolemia and Hypertension; Negative Congestive Heart Failure RESPIRATORY: Positive Asthma; Negative Chronic Obstructive Pulmonary Disease (COPD) GENITOURINARY: Negative Renal Disease MUSCULOSKELETAL: Positive Arthritis ENDOCRINE: Negative Diabetes Mellitus Type 1 or Diabetes Mellitus Type 2 HEMATOLOGIC: Negative Sickle Cell Disease Surgical History SURGICAL: Positive Vascular Surgery Social History SMOKING STATUS: Never smoker ED Exam Narrative Physical exam: [General: Sallow, deconditioned, but not in any acute distress Head normocephalic HEENT: Eyes pupils are PERRLA EOMs are intact mouth pink dry membranes uvula is midline swallow symmetrical. Within acceptable limits Neck is supple nontender Chest equal chest rise nontender to palpation Respiratory: Clear to auscultation no wheezes crackles or rubs CV: Rate rhythm is regular no murmurs rubs or clicks Abdomen is soft nontender no masses positive bowel sounds all 4 quadrants Back: No CVA tenderness no spinous process tenderness from cervical spine thoracic and lumbar spine Skin: Intact no petechiae rash induration ulceration or crepitus Extremities: Right knee pain with palpation, no significant edema or erythema. No obvious leg deformity. Moving all extremitie with poor strength against resistance cap refill less than 2 seconds neurosensory intact Neuro: Awake alert oriented x2, person and place Glascow coma 15 no focal deficits] Course Course Course Narrative: Patient case, laboratory findings imaging clinical presentation presented to Dr. Cartagena, who suspects this is autoimmune in nature. The patient will have an ESR and CRP ordered, and CHIRAG from the previous admission was highly elevated at 320. Dr. Higuera recommends patient be discharged home on 5 days of steroids and get a referral from PCP for rheumatology. Quality Measures none Orders Category Date Time Status Bedside COVID-19 Antigen Test NOW Care 07/27/25 17:13 Active Head Sulfide Operator STAT Care 07/27/25 17:13 Active Continuous Pulse Oximetry STAT Care 07/27/25 17:13 Completed EKG (ED ONLY) *Do not use* NOW Care 07/27/25 17:13 Completed In and Out Catheter X1PRN Care 07/27/25 17:13 Completed Insert IV NOW Care 07/27/25 17:13 Active NPO STAT Care 07/27/25 17:13 Active Strict Intake and Output Routine Care 07/27/25 17:13 Ordered Consult to Adult Hospitalist Stat Cons 07/27/25 21:[address] abdomen pelvis wo con Stat Exams 07/27/25 18:51 Completed EKG (ED Only) Stat Exams 07/27/25 17:13 Draft US gall bladder Stat Exams 07/27/25 20:43 Completed XR chest 1V SEPSIS PROTOCOL Stat Exams 07/27/25 17:14 Completed XR knee RT 3V Stat Exams 07/27/25 17:13 Completed B-Type Natriuretic Peptide Stat Lab 07/27/25 17:30 Completed Blood Culture (Lab) Stat Lab 07/27/25 17:30 Received CBC Stat Lab 07/27/25 17:30 Completed CRP [C-Reactive Protein] Stat Lab 07/27/25 21:40 Completed Comprehensive Metabolic Panel Stat Lab 07/27/25 17:30 Completed ESR [Sed Rate (ESR)] Stat Lab 07/27/25 21:40 Completed Influenza A & B Rapid Panel Stat Lab 07/27/25 17:58 Completed LDH (Lactate Dehydrogenase) Stat Lab 07/27/25 17:30 Completed Lactate (Lactic Acid) Stat Lab 07/27/25 17:30 Completed Lactic Acid, 3 HR Stat Lab 07/27/25 21:40 Completed Lipase Stat Lab 07/27/25 17:30 Completed Magnesium Stat Lab 07/27/25 17:30 Completed Partial Thromboplastin Time Stat Lab 07/27/25 17:30 Completed Phosphorous Stat Lab 07/27/25 17:30 Completed Procalcitonin Stat Lab 07/27/25 17:30 Completed Prothrombin Time with INR Stat Lab 07/27/25 17:30 Completed Troponin I Stat Lab 07/27/25 17:30 Completed Urinalysis, C/S if Indicated Stat Lab 07/27/25 17:58 Completed Acetaminophen Ivpb [Ofirmev Inj] Med 07/27/25 18:37 Discontinued 1,000 mg in 100 ml IV NOW Ringers Lactated 1000 ml [Lactated Ringers] 1,000 ml Med 07/27/25 18:38 Discontinued IV 999 mls/hr Oxygen Delivery NOW RT 07/27/25 17:13 Active Vital Signs Vital signs: Vital Signs Temperature 100.8 F H 07/27/25 17:11 Pulse Rate 79 07/27/25 17:11 Respiratory Rate 19 07/27/25 17:11 Blood Pressure 130/73 07/27/25 17:11 Pulse Oximetry (%) 98 07/27/25 17:11 Oxygen Delivery Method Room Air 07/27/25 17:11 Discharge Plan Plan Patient Disposition: HOME (Self Care) Patient condition on transfer: Stable Prescriptions/Referrals Prescriptions/Med Rec: New prednisone 20 mg tablet See Taper PO BID 5 Days Qty: 10 0RF Taper: Prednisone Taper 20 mg DAILY for 2 Days and 0 Hour 10 mg DAILY for 2 Days and 0 Hour 5 mg DAILY for 7 Days and 0 Hour No Action gabapentin 300 MG capsule 300 mg PO QDAY Qty: 30 cyclobenzaprine 10 mg tablet 10 mg PO HS Patient Comments: TAKE 1 TABLET BY MOUTH EVERY NIGHT NEEDED levofloxacin 750 mg tablet 750 mg PO QDAY Qty: 7 0RF tramadol 50 mg tablet 50 mg PO QID Qty: 4 0RF Patient Comments: TAKE 2 TABLETS BY MOUTH 4 TIMES A DAY Referrals: Danyelle Heredia, DENTAL SERVICE TECHNICIAN [Primary Care Provider] - In 1 week Problem List Clinical Impression: Fever, Knee pain, Low back pain Patient/Caregiver Discharge Instructions Additional Instructions: Please discuss with your primary care doctor referral to rheumatology. Take the medications as prescribed follow-up with your primary care doctor if there is worsening of symptoms return the emergency room for further evaluation. Print Language: Mozambican Stand Alone Forms: [employer] Info., Work/School Release, Patient Portal Info Letter PA/ZAHRA Supervising Physician PA/[employer]ATOR [employer] Supervising Physician: Romario BRINK Medical Records reviewed [facility] and EMS Meds/Rx considered, not ordered None Labs/Rad/Tests considered, not ordered None Chronic Illness/Social Conditions Explain: Recent cholecystectomy and admission for fever of unknown origin EKG Interpretation EKG #1: EKG Interpretation: EKG performed at 1733 shows a ventricular rate of 76 TX interval 158 QRS of 93 QTc of 384 this in sinus rhythm. Labs Labs: interpreted by in Lab(s) Interpretation(s): CBC shows no acute leukocytosis hemoglobin of 11 hematocrit of 33.9 note, upon review of previous lab draws this is not on can change but stable anemia. No thrombocytopenia Coags showing no excess abnormalities CMP shows no significant electrolyte imbalances renal impairment transaminitis or T. bili elevation Lactic of 2.2 Troponin is unremarkable BP on remarkable Urine is negative for UTI. Imaging Imaging interpretation: interpreted by in Imaging Interpretation(s): Knee x-ray shows small effusion but no other acute finding. Chest x-ray is unremarkable. Enlarged common bile duct on CT. Medication Administration(s) Medication Administration History Discontinued Medications Acetaminophen (Ofirmev Inj) 1,000 mg in 100 mls @ 250 mls/hr IV NOW ONE Stop: 07/27/25 19:00 Last Infusion: 07/27/25 20:07 Dose: Infused Documented By: Admin: 07/27/25 19:35 Dose: 250 mls/hr Documented By: SRINI Lactated Ringer's (Lactated Ringers) 1,000 mls @ 999 mls/hr IV .Q1H1M ONE Stop: 07/27/25 19:38 Last Infusion: 07/27/25 20:38 Dose: Infused Documented By: Admin: 07/27/25 19:37 Dose: 999 mls/hr Documented By: SRINI
[2025-07-27 17:58] LABS: Lactate (Lactic Acid) 2.2 mMol/L (0.4-2.0)
[2025-07-27 18:01] LABS: Basophils # (Auto) 0.0 Thou/mm3 (0.0-0.2); Basophils % (Auto) 0 % (0-2.5); Eosinophils # (Auto) 0.1 Thou/mm3 (0.0-0.5); Eosinophils % (Auto) 1 % (0-10); Hematocrit 33.9 % (36.0-46.0); Hemoglobin 11.0 g/dL (12.0-16.0); Immature Granulocytes Auto 0.03 Thou/mm3 (0.00-0.00); Lymphocytes # (Auto) 2.5 Thou/mm3 (1.0-4.8); Lymphocytes % (Auto) 29 % (10-50); Mean Corpuscular HGB Conc 32.4 g/dl (31.0-37.0); Mean Corpuscular Hemoglobin 30.4 pg (25.0-35.0); Mean Corpuscular Volume 94 fL (80-100); Monocytes # (Auto) 0.9 Thou/mm3 (0.0-0.8); Monocytes % (Auto) 11 % (0-12); Neutrophils # (Auto) 5.0 Thou/mm3 (1.8-7.7); Neutrophils % (Auto) 59 % (37-80); Nucleated Red Blood Cell # 0.00 Thou/mm3 (0.00-0.00); Nucleated Red Blood Cell % 0 /100 WBC (0); Platelet Count 248 Thou/mm3 (140-440); RDW Standard Deviation 43.8 fL (36.4-46.3); Red Blood Count 3.62 Miln/mm3 (4.00-5.20); White Blood Count 8.6 Thou/mm3 (3.6-11.0)
[2025-07-27 18:14] LABS: Collection Type, Urine Clean Catch; Squamous Epithelial Cell,Urine 0 /hpf (0-5)
[2025-07-27 18:19] LABS: INR 1.0 (0.9-1.3); Partial Thromboplastin Time 28.4 Seconds (22.0-36.0); Prothrombin Time 10.9 Seconds (9.0-12.2)
[2025-07-27 18:21] LABS: B-Type Natriuretic Peptide 57 pg/mL (0-100)
[2025-07-27 18:22] LABS: Bilirubin,Urine Negative (Negative); Blood,Urine Trace (Negative); Clarity,Urine Clear (Clear/Hazy); Color,Urine Yellow (Lt Yel-Yel); Culture Indicated,Urine Not Indicated; Glucose, Urine Negative (Negative); Ketones,Urine Negative (Negative); Leukocyte Esterase,Urine Negative (Negative); Nitrite,Urine Negative (Negative); PH,Urine 7.5 (5.0-7.0); Protein,Urine Negative (Neg - Trace); RBC,Urine 11 /hpf (0-3); Specific Gravity,Urine 1.012 (1.001-1.035); Urobilinogen,Urine Negative mg/dL (0.0-1.0); WBC,Urine 1 /hpf (0-5)
[2025-07-27 18:32] LABS: Influenza A Ag Negative; Influenza B Ag Negative
[2025-07-27 18:40] LABS: Alanine Aminotransferase < 7 U/L (10-49); Albumin, Serum 4.2 gm/dL (3.4-4.8); Albumin/Globulin Ratio 1.6 (1.2-2.2); Alkaline Phosphatase 73 U/L (46-116); Anion Gap 12 (7-16); Aspartate Amino Transferase 29 U/L (0-34); BUN/Creatinine Ratio 9 Ratio (12-20); Bilirubin,Total 0.7 mg/dL (0.3-1.2); Blood Urea Nitrogen 10 mg/dL (9-23); Calcium 9.6 mg/dL (8.3-10.6); Calcium (Corrected) 9.6 mg/dL (8.5-10.1); Carbon Dioxide 24.9 mMol/L (20.0-31.0); Chloride 104 mMol/L (98-107); Creatinine (Component) 1.1 mg/dL (0.6-1.3); Estimated Creatinine Clearance 39.8 mL/min (>60); Globulin 2.7 gm/dL (2.3-3.5); Glucose 107 mg/dL (74-106); LDH (Lactate Dehydrogenase) 196 U/L (120-246); Lipase 35 U/L (12-53); Magnesium 1.7 mg/dL (1.6-2.6); Osmolality,Calculated 280 (275-295); Phosphorous 2.1 mg/dL (2.4-5.1); Potassium 3.4 mMol/L (3.4-5.1); Procalcitonin 0.11 ng/ml (0.0-0.49); Sodium 141 mMol/L (136-145); Total Protein 6.9 gm/dL (5.7-8.2); Troponin I < 0.020 ng/mL (0.0-0.045); eGFR 55 See Note
--- NOTE | 2025-07-27 18:51 | XR_ITS ---
Examination: CT abdomen and pelvis without contrast. Coronal 3-D reconstructions. Sagittal 2-D reconstructions. Date and time of exam: July 27, 2025, 1924 hours INDICATIONS: Sepsis fever weakness abdominal pain today CTDI: vol (mGy): 6.17 DLP: (mGycm): 308 Technique: Axial images of the abdomen have been obtained, 3 mm slice thickness Intravenous contrast material has not been administered. Low dose protocols were performed. One or more of the following dose reduction techniques were used; automated exposure control, adjustment of the mA and/or KV according to patient size, use of iterative reconstruction technique. Findings: Atelectasis in the right lower lobe No visualized liver or splenic lesion No gallstones, abnormal enlargement of the common hepatic duct No pancreatic or adrenal mass No renal or ureteral calculi, no hydronephrosis Aorta normal size Abundant stool throughout the colon No bowel obstruction No diverticulitis Moderately distended urinary bladder Atrophic uterus Prominent osteopenia No pericecal inflammatory change IMPRESSION: No renal or ureteral calculi, no hydronephrosis No pericecal inflammatory change No bowel obstruction diverticulitis or free air Abnormal enlargement of the common hepatic duct, 12 mm, recommend about a biliary sonography follow-up
[2025-07-27] MEDS: ACETAMINOPHEN IVPB 1,000 MG/100 ML VIAL 250 MG IV (19:35)
[2025-07-27] MEDS: RINGERS LACTATED 1000 ML 1,000 ML 999 ML IV (19:37)
--- NOTE | 2025-07-27 20:43 | XR_ITS ---
Examination: Abdomen sonogram, Limited Date and time of exam: July 27, 2025, 2112 hours INDICATIONS: Enlarged common bile duct today Technique: Real-time gregg scale transabdominal sonographic images of the upper abdomen obtained. Findings: Normal gallbladder Common bile duct enlarged 1.5 cm Pancreatic head 2.7 cm Predictable 12.7 cm fatty infiltration Normal hepatopetal portal venous flow Patent IVC IMPRESSION: Enlarged common bile duct, clinical correlation advised If biliary colic is a clinical consideration suggest MRCP follow-up
[2025-07-27 20:56] LABS: Reflex Lactate? Y
[2025-07-27 21:45] LABS: Lactic Acid, 3 HR 0.9 mMol/L (0.4-2.0)
[2025-07-27 22:05] LABS: Sed Rate (ESR) 101 mm/hr (0-30)
--- NOTE | 2025-07-27 22:07 | ESCONSULT_ITS ---
HPI Data of Consult Primary Care Provider: Danyelle Heredia NP Consult Narrative Reason for consult: Fever of unkown etiology and back/Right knee pain History of present illness: Patient is 65F with PMH of hypertension, hyperlipidemia, and diabetes presenting to ED due to fever and right knee pain. Highest temp recorded at 102.7 improved to 99.1 after Tylenol. Labs were unremarkable with no white count, lactic acid downtrended to 0.9 from 2.1 with fluids. Pro tiana normal. She was recently discharged 07/19 after workup of fever unknown origin showed elevated CHIRAG titers 1:320. Patient's workup also showed suspicion of pneumonia versus atelectasis at lung bases, with distended gall bladder, biliary tract dilation and chest CT abdomen pelvis. She requires outpatient follow up with GI due to MRCP findings of abnormal extrahepatic biliary tract dilation with abrupt termination of the distal common bile duct. Blood cultures were negative from last admission. Today, patient is AOx3. On physical exam she had pain to palpation of right knee, pain on passive and active flexion. No erythema or swelling. Primary care team discussed with ED provider that patient should follow up outpatient. She requires further workup of autoimmune disease. Daughter was at bedside and updated on this with all questions answered. Patient to be discharged with prednisone course and close follow up with PCP for rheumatology and GI referal. cc:: cc: Review of Systems Review of Systems Systems Reviewed: All systems reviewed, normal except as documented Exam Vital Signs Temp Pulse Resp BP Pulse Ox O2 Del Method 100.9 F H 74 18 127/51 L 95 Room Air 07/27/25 20:04 07/27/25 20:08 07/27/25 20:08 07/27/25 20:04 07/27/25 20:04 07/27/25 20:04 Narrative Exam General: Alert and oriented x3. No acute distress, cooperative HEENT: NCAT, No JVD noted. Mucosa moist. Pupils are equal and reactive to light bilaterally Cardiovascular: Normal S1 and S2. Regular rate and rhythm. Respiratory: Lungs are clear to auscultation bilaterally. No wheezing or crackles heard. Abdomen: Soft, nontender, not distended, normal bowel sounds. Skin: Warm to touch, dry, no rashes noted Musculoskeletal: No gross injuries. Able to move all 4 extremities. No pitting edema. pain to palpation of right knee, pain on passive and active flexion. No erythema or swelling, normal range of motion. Neuro: Alert and oriented x3. No focal neuro deficits. Psych: Normal affect and mood Results Labs 07/27/25 17:30 07/27/25 17:30 Labs: Short CBC 07/27/25 Range/Units 17:30 WBC 8.6 (3.6-11.0) Thou/mm3 Hgb 11.0 L (12.0-16.0) g/dL Hct 33.9 L (36.0-46.0) % Plt Count 248 D (140-440) Thou/mm3 BMP 07/27/25 17:30 Sodium 141 Potassium 3.4 Chloride 104 Carbon Dioxide 24.9 BUN 10 Creatinine 1.1 Glucose 107 H Calcium 9.6 Cardiac Enzymes 07/27/25 Range/Units 17:30 Troponin I < 0.020 (0.0-0.045) ng/mL Liver Function 07/27/25 Range/Units 17:30 Total Bilirubin 0.7 (0.3-1.2) mg/dL AST 29 (0-34) U/L ALT < 7 L (10-49) U/L Alkaline Phosphatase 73 (46-116) U/L Albumin 4.2 (3.4-4.8) gm/dL Urine 07/27/25 Range/Units 17:58 Urine Color Yellow (Lt Yel-Yel) Urine Clarity Clear (Clear/Hazy) Urine pH 7.5 H (5.0-7.0) Ur Specific [place] 1.012 (1.001-1.035) Urine Protein Negative (Neg - Trace) Urine Glucose (UA) Negative (Negative) Quality Measures Quality Measures none Advance care planning discussed with:: patient Medications Home Medications and Allergies Home Medications ?Medication ?Instructions ?Recorded ?Confirmed ?Type gabapentin 300 mg capsule 300 mg PO QDAY ##30 07/08/16 07/17/25 History cyclobenzaprine 10 mg tablet 10 mg PO HS 07/17/2507/05 History Allergies Allergy/AdvReac Type Severity Reaction Status Date / Time ceftriaxone (From Rocephin) Allergy Hives Verified 07/27/25 17:18 Visit Medications Discontinued Medications Acetaminophen (Ofirmev Inj) 1,000 mg in 100 mls @ 250 mls/hr IV NOW ONE Stop: 07/27/25 19:00 Last Infusion: 07/27/25 20:07 Dose: Infused Lactated Ringer's (Lactated Ringers) 1,000 mls @ 999 mls/hr IV .Q1H1M ONE Stop: 07/27/25 19:38 Last Infusion: 07/27/25 20:38 Dose: Infused Assessment & Plan Plan Patient is 65F with PMH of hypertension, hyperlipidemia, diabetes, and recent admission to [facility] for similar symptoms presenting to ED due to fever and right knee pain and back pain. Highest temp recorded at 102.7 improved to 99.1 after Tylenol. Internal medicine team consulted for evaluation. Patient was seen and examined in ED and charts reviewed. Of note patient underwent cholecystectomy during previous admission. #Fever of unknown etiology #Autoimmune disorder #Elevated CHIRAG Fever likely related to underlying autoimmune disorder. CHIRAG titers 1: 320. Today, patient is AOx3. On physical exam she had pain to palpation of right knee, pain on passive and active flexion. No erythema or swelling. - Recommend Tylenol 500mg tablet once every 6hours for fever> 101 - Recommend to discharge patient with 5 days of prednisone - Follow-up outpatient with rheumatology - Patient informed to return to ED if fever not responsive to Tylenol or if symptoms worsen. #Biliary tract dilation No abdominal pain, LFTS wnl, bl 0.7. Last admission her CT A/P showed distended gall bladder, biliary tract dilation 12 mm MRCP findings of abnormal extrahepatic biliary tract dilation with abrupt termination of the distal common bile duct. -follow up outpatient with GI for ERCP The patient's management plan was discussed with my attending physician Dr. Adam. [place] Del Castillo, PGY-2 Attending Provider Attestation/Addendum After examination of the patient and review of the clinical data I feel that this patient does not need admission to the hospital and can be followed outpatient. Plan of care discussed with patient and granddaughter by bedside and both are in agreement. I Juan Adam MD, attest that I was physically present for lott portions of evaluation, and examined patient, labs and imagings and plan of care were discussed with IM residents team, and I agree with the findings and plans documented above.
[2025-07-27 22:16] LABS: C-Reactive Protein 9.5 mg/dL (0.0-0.9)
== END 2025-07-27 23:28 | disposition home or self-care (01) ==
PROVIDERS: Registered Nurse General Practice; Student in an Organized Health Care Education/Training Program; Emergency Provider Emergency Medicine; PCP Nurse Practitioner Family
DX: R50.9 Fever, unspecified (principal); M25.561 Pain in right knee; M54.50 Low back pain, unspecified
CPT/HCPCS: 36415; 51701; 51702; 71045; 73562; 74176; 76705; 80053; 81001; 83605; 83615; 83690; 83735; 83880; 84100; 84145; 84484; 85025; 85610; 85652; 85730; 86140; 87040; 87502; 87635; 93005; 96361; 96365; 99285; A4314; J0131; J7120